=== PATIENT | male | born 1940 | race Caucasian/White ===

== ENCOUNTER → 2020-03-22 15:12 | Outpatient (BNVA) | payer MEDICARE, SELFPAY | PROVIDERS: Visit Provider Nurse Practitioner Family | DX: Z11.59 Encounter for screening for other viral diseases (principal) | CPT/HCPCS: 87635 ==

== ENCOUNTER 2020-06-09 14:01 | Outpatient (CLI) | payer MEDICARE, SELFPAY ==
--- NOTE | 2020-06-09 14:11 | CTR_ITS ---
PROCEDURE INFORMATION: Exam: CT Abdomen And Pelvis With Contrast Exam date and time: 06/09/2020 2:27 PM Age: 80 years old Clinical indication: Abdominal pain; Generalized; Additional info: Low back pain and near syncope, new onset. Self limiting TECHNIQUE: Imaging protocol: Computed tomography of the abdomen and pelvis with intravenous contrast. Radiation optimization: All CT scans at this facility use at least one of these dose optimization techniques: automated exposure control; mA and/or kV adjustment per patient size (includes targeted exams where dose is matched to clinical indication); or iterative reconstruction. Contrast material: VISI 320; Contrast volume: 95 ml; Contrast route: INTRAVENOUS (IV); COMPARISON: No relevant prior studies available. RADIATION DOSE METRICS: Total DLP (mGy-cm): 578.44 FINDINGS: Liver: Normal. No mass. Gallbladder and bile ducts: There has been a cholecystectomy. Pancreas: There is a mass in the pancreatic head measuring 5.6 x 5 cm. This solid mass enhances heterogeneously. No associated fat or calcification. No evidence for pancreatitis. Spleen: Normal. No splenomegaly. Adrenals: Normal. No mass. Kidneys and ureters: There is moderate left hydroureteronephrosis. No definite obstructing ureteral mass or calcification is identified. The left ureter is difficult to follow along its entire course. Stomach and bowel: There has been sigmoid colon surgery. There is stool throughout the colon. No bowel obstruction or wall thickening. Appendix: The appendix is visualized and appears normal. Intraperitoneal space: Unremarkable. No free air. No significant fluid collection. Vasculature: Unremarkable. No abdominal aortic aneurysm. Lymph nodes: Unremarkable. No enlarged lymph nodes. Bladder: Unremarkable as visualized. Reproductive: Unremarkable as visualized. Bones/joints: Unremarkable. No acute fracture. Soft tissues: Unremarkable. 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 There is moderate left hydroureteronephrosis. Radiation Dose CTDIVOL = (mGy): DLP = 578.44 (mGy-cm)
--- NOTE | 2020-06-09 14:11 | XRR_ITS ---
PROCEDURE INFORMATION: Exam: XR Chest, 2 Views Exam date and time: 06/09/2020 2:55 PM Age: 80 years old Clinical indication: Cough and shortness of breath; Additional info: Cough, short of breath, back pain, near syncope TECHNIQUE: Imaging protocol: XR of the chest Views: 2 views. COMPARISON: No relevant prior studies available. FINDINGS: Lungs: Unremarkable. No consolidation. Pleural space: Unremarkable. No pleural effusion. No pneumothorax. Heart/Mediastinum: Unremarkable. No cardiomegaly. Bones/joints: Degenerative change is identified in the spine. There is no evidence for acute fracture or malalignment. XR/XR chest 2V* [id number] IMPRESSION: There are no acute concerning abnormalities.
[2020-06-09 14:20] LABS: Basophils # 0.1 10^3/uL (0.0-0.1); Basophils % 0.4 %; Eosinophils % 0.1 %; Hemoglobin 15.1 g/dL (11.7-16.6); Lymphocytes # 1.6 10^3/uL (0.8-4.8); Lymphocytes % 11.8 %; Mean Corpuscular HGB Conc 31.5 g/dL (30.0-36.0); Mean Corpuscular Volume 95.4 fL (80-94); Mean Platelet Volume 9.4 fL (7.4-10.4); Monocytes # 0.4 10^3/uL (0.2-0.9); Neutrophils % 83.5 %; Nucleated Red Blood Cells % 0 %; Platelet Count 400 10^3/cmm (130-400); Red Blood Count 5.03 10^6/uL (4.1-5.3); Red Cell Distribution Width 13.7 % (12.1-15.1); White Blood Count 13.4 10^3/uL (4.0-10.0)
[2020-06-09 14:45] LABS: Anion Gap 12.5 (5-19); Blood Urea Nitrogen 19 mg/dL (8-23); Calcium 9.2 mg/dL (8.5-10.5); Carbon Dioxide 27 mmol/L (22-29); Chloride 104 mmol/L (98-107); Glucose 108 mg/dL (65-115); NT Pro B Type Natriuretic Pept 126 pg/mL (0-450); Osmolality Calculated 285 mOsm/kg (285-295); Potassium 4.5 mmol/L (3.5-5.1); Sodium 139 mmol/L (136-145); Thyroid Stimulating Hormone 1.26 uIU/mL (0.27-4.20)
[2020-06-09] MEDS: iodixanol 320 mg/mL 100mL Btl IV (15:54)
[2020-06-09] MEDS: iohexol 300 mg/mL 50 mL Btl PO (15:56)
== END 2020-06-09 14:02 | disposition home or self-care (01) ==
PROVIDERS: PCP Student in an Organized Health Care Education/Training Program; Visit Provider Emergency Medicine
DX: R06.02 Shortness of breath (principal); E03.9 Hypothyroidism, unspecified; R55 Syncope and collapse; R05 Cough; M54.5 Low back pain; K86.89 Other specified diseases of pancreas; N13.30 Unspecified hydronephrosis
CPT/HCPCS: 71046; 74177; 80048; 83880; 84443; 85025

== ENCOUNTER → 2022-02-20 10:22 | Outpatient (BNVA) | payer MEDICARE, SELFPAY | PROVIDERS: PCP Student in an Organized Health Care Education/Training Program; Visit Provider Internal Medicine Pulmonary Disease | DX: J44.1 Chronic obstructive pulmonary disease with (acute) exacerbation (principal); K86.89 Other specified diseases of pancreas; Z87.891 Personal history of nicotine dependence; N13.30 Unspecified hydronephrosis | CPT/HCPCS: 71046; 99204 ==

== ENCOUNTER → 2022-05-08 09:30 | Outpatient (BNVA) | payer MEDICARE, SELFPAY | PROVIDERS: PCP Nurse Practitioner Family; Visit Provider Internal Medicine Pulmonary Disease | DX: J44.1 Chronic obstructive pulmonary disease with (acute) exacerbation (principal); Z87.891 Personal history of nicotine dependence; K86.89 Other specified diseases of pancreas | CPT/HCPCS: 99214 ==

== ENCOUNTER → 2022-08-11 08:18 | Outpatient (BNVA) | payer MEDICARE, SELFPAY | PROVIDERS: PCP Nurse Practitioner Family; Visit Provider Internal Medicine Pulmonary Disease | DX: J44.9 Chronic obstructive pulmonary disease, unspecified (principal); Z87.891 Personal history of nicotine dependence; K86.89 Other specified diseases of pancreas; Z99.81 Dependence on supplemental oxygen | CPT/HCPCS: 99214 ==

== ENCOUNTER 2022-10-29 08:54 | Outpatient (CLI) | payer MEDICARE, SELFPAY | END 2022-10-29 08:55 | disposition home or self-care (01) | LOC: RT 08:58 | PROVIDERS: PCP Nurse Practitioner Family; Visit Provider Internal Medicine Pulmonary Disease | DX: J44.9 Chronic obstructive pulmonary disease, unspecified (principal) | CPT/HCPCS: 94060; 94618; 94729; J7613 ==

== ENCOUNTER → 2022-12-15 13:00 | Outpatient (BNVA) | payer MEDICARE, SELFPAY | PROVIDERS: PCP Nurse Practitioner Family; Visit Provider Internal Medicine Pulmonary Disease | DX: J44.9 Chronic obstructive pulmonary disease, unspecified (principal); Z87.891 Personal history of nicotine dependence; K86.89 Other specified diseases of pancreas; Z99.81 Dependence on supplemental oxygen; G47.33 Obstructive sleep apnea (adult) (pediatric) | CPT/HCPCS: 99214 ==

== ENCOUNTER 2023-04-01 11:35 | Emergency (ER) | payer MEDICARE, SELFPAY ==
[2023-04-01 11:52] VITALS: BP 126/83; PULSE 80; RESP 17; TEMP 36.6; O2SAT 96; BMI 23.5
--- NOTE | 2023-04-01 12:03 | XRR_ITS ---
PROCEDURE INFORMATION: Exam: XR Chest Exam date and time: 04/01/2023 12:09 PM Age: 83 years old Clinical indication: Patient HX: Weakness, cough, HX of growth on pancreas since 2000; Additional info: Weakness and cough TECHNIQUE: Imaging protocol: Radiologic exam of the chest. Views: 1 view. COMPARISON: CR XR chest 2V* [id number] 02/20/2022 12:37 PM FINDINGS: Lungs: Unremarkable. No consolidation. Pleural spaces: Unremarkable. No pleural effusion. No pneumothorax. Heart/Mediastinum: Unremarkable. No cardiomegaly. Bones/joints: There is kyphoplasty present at the T12 level stable since prior Other findings: There has been no interval change comparing to prior examination XR/XR chest 1V portable [id number] IMPRESSION: 1. No acute findings. 2. Stable kyphoplasty T12 level
--- NOTE | 2023-04-01 12:04 | ECG_ITS ---
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 Measurements Intervals [place] Rate: 77 P: 82 OR: 203 QRS: 58 QRSD: 88 T: 80 QT: 352 QTc: 401 Interpretive Statements SINUS RHYTHM POSSIBLE RIGHT VENTRICULAR CONDUCTION DELAY [RSR (QR) IN V1/V2] SEPTAL MYOCARDIAL INFARCTION , OF INDETERMINATE AGE [40+ ms Q WAVE IN V1/V2] No previous ECG available for comparison Electronically Signed On 04-01-2023 21:01:34 CDT by Randy Brito M.D. [id number]
--- NOTE | 2023-04-01 12:23 | ED_ITS ---
Documented by User: RODRIGO Quiroz 04/02/23 14:21 HPI - Weakness General: Chief complaint: Weakness Stated complaint: Weakness, Low BP Time Seen by Provider: 04/01/23 12:03 History of Present Illness: Patient is a 83-year-old male who comes to the ED with weakness. Patient says that his symptoms started approximately a week ago. Patient has a history of COPD and is on 2 L of oxygen at home. Patient is having symptoms of dry cough, nasal drainage and congestion, body aches and shortness of breath. Shortness of breath worsens with exertion. Denies any shortness of breath when laying flat. Patient says he has occasionally turned his oxygen up to 3 L, but he is mostly been on 2 L and is O2 saturation has been in the low 90s. Denies any fevers, chills, chest pain, nausea/vomiting, bladder or bowel symptoms. Associated symptoms: Denies chest pain, chills, dysuria, fever(s), headache(s), nausea or vomiting Review of Systems Const: Reports: body aches and fatigue; Denies: fever(s) or chills Eyes: Denies: change in vision or eye discomfort ENMT: Reports: nasal discharge and nasal congestion; Denies: throat pain or odynophagia Card: Denies: chest pain, palpitations, edema, swelling of feet/ankles, dyspnea on exertion or orthopnea Resp: Reports: dyspnea and non-productive cough; Denies: productive cough GI: Denies: abdominal pain, nausea, vomiting, diarrhea, constipation or hematochezia : Denies: flank pain, difficulty urinating, dysuria or hematuria Musc: Denies: neck pain, back pain or extremity swelling Skin/Breast: Denies: rash or new lesions Neuro: Denies: headache(s), numbness in extremities or weakness in extremities PFSH ED PFSH: Medical History (Updated 04/01/23 @ 16:08 by RODRIGO Quiroz) COPD exacerbation Hydroureteronephrosis No pertinent family history Pancreatic mass Social History Smoking and tobacco status: former smoker Quit status (tobacco): has quit using tobacco Year quit tobacco: 1988 Alcohol intake: never Substance/Drug Use: never Physical Exam Const: COMMON NORMALS: patient oriented x3 and alert GENERAL APPEARANCE: cooperative HENMT: COMMON NORMALS: normocephalic HEAD & SCALP: normocephalic MOUTH: Normal oral and palatal mucosa present THROAT: posterior oropharynx normal and uvula midline Neck/C-Spine: COMMON NORMALS: supple GENERAL: Yes normal visual inspection Resp: COMMON NORMALS: normal respiratory effort, No retractions and No use of accessory muscles AUSCULTATION: diminished lung sounds bilateral in the lower lung drake Cardio: COMMON NORMALS: regular rate, regular rhythm, S1 normal heart sound present, S2 normal heart sound present, No gallops present (Cardio), No clicks p resent (Cardio), No murmurs present (Cardio) and Peripheral pulses 2+ throughout RATE: regular rate RHYTHM: regular rhythm HEART SOUNDS: S1 normal heart sound present and S2 normal heart sound present PERIPHERAL PULSES: Peripheral pulses 2+ throughout GI: COMMON NORMALS: Normal to inspection, nondistended, normoactive bowel sounds present, Soft to palpation, non-tender and no masses PALPATION: Yes Soft to palpation : COMMON NORMALS: Yes no CVA tenderness BLADDER/KIDNEY EXAM: Yes no CVA tenderness Back/Pelvis: COMMON NORMALS: no CVA tenderness Extremity: COMMON NORMALS: normal to inspection Neuro: COMMON NORMALS: patient oriented x3 SENSORIUM/ORIENTATION: Yes alert GAIT: Yes Normal gait present Skin: GENERAL SKIN EXAM: dry skin Course Vital Signs: Vital signs: Vital Signs Temperature 97.9 F 04/01/23 11:52 Pulse Rate 86 04/01/23 16:30 Respiratory Rate 18 04/01/23 16:30 Blood Pressure 126/83 04/01/23 11:52 Pulse Oximetry 97 04/01/23 16:30 Oxygen Delivery Me thod Nasal Cannula 04/01/23 11:52 Oxygen Flow Rate 3 04/01/23 11:52 MDM - Weakness Medical Decision Making Patient is a 83-year-old male who comes to the ED with weakness. Patient says that his symptoms started approximately a week ago. Patient has a history of COPD and is on 2 L of oxygen at home. Patient is having symptoms of dry cough, nasal drainage and congestion, body aches and shortness of breath. Shortness of breath worsens with exertion. Denies any shortness of breath when laying flat. Patient says he has occasionally turned his oxygen up to 3 L, but he is mostly been on 2 L and is O2 saturation has been in the low 90s. Denies any fevers, chills, chest pain, nausea/vomiting, bladder or bowel symptoms. Vitals are stable. He is on 2 L of O2 here in the ED and his O2 saturation is sitting in the mid 90s. He appears nontoxic in no acute distress or pain. He has some diminished lung sounds at the bases bilaterally but rest of exam is benign white blood cell count of 12 and the rest of CBC and CMP is unremarkable. Chest x-ray shows no acute findings. Troponins negative and COVID and influenza were both negative. EKG shows no acute findings. Patient was given dose of IV Solu- Medrol here in the ED. He was diagnosed with COPD exacerbation and was di scharged home with a prescription for an antibiotic and steroid. Told to follow-up with their PCP in the next 5 to 7 days for reevaluation. Strict return to ED precautions given. Patient understood agree with plan. Lab Data I reviewed the patient's lab results. 04/01/23 12:15 04/01/23 12:15 Radiology Impressions Chest X-Ray 04/01/23 12:03 IMPRESSION: 1. No acute findings. 2. Stable kyphoplasty T12 level Laboratory Results WBC 12.0 10^3/uL (4.0-10.0) H 04/01/23 12:15 RBC 4.63 10^6/uL (4.1-5.3) 04/01/23 12:15 Hgb 13.6 g/dL (11.7-16.6) 04/01/23 12:15 Hct 42.4 % (42.0-52.0) 04/01/23 12:15 MCV 91.6 fl (80-94) 04/01/23 12:15 MCH 29.4 pg (28.0-34.0) 04/01/23 12:15 MCHC 32.1 g/dL (30.0-36.0) 04/01/23 12:15 RDW 13.7 % (12.1-15.1) 04/01/23 12:15 Plt Count 423 10^3/cmm (130-400) H 04/01/23 12:15 MPV 9.4 fL (7.4-10.4) 04/01/23 12:15 Neut % (Auto) 67.3 % 04/01/23 12:15 Lymph % (Auto) 18.2 % 04/01/23 12:15 [place] % (Auto) 10.6 % 04/01/23 12:15 Eos % (Auto) 2.7 % 04/01/23 12:15 Baso % (Auto) 0.9 % 04/01/23 12:15 Neut # (Auto) 8.07 10^3/uL (1.8-7.7) H 04/01/23 12:15 Lymph # (Auto) 2.2 10^3/uL (0.8-4.8) 04/01/23 12:15 [place] # (Auto) 1.3 10^3/uL (0.2-0.9) H 04/01/23 12:15 Eos # (Auto) 0.3 10^3/uL (0.0-0.8) 04/01/23 12:15 Baso # (Auto) 0.1 10^3/uL (0.0-0.1) 04/01/23 12:15 Nucleated RBC % (auto) 0 % 04/01/23 12:15 Nucleated RBCs # 0.0 /100WBC 04/01/23 12:15 Sodium 139 mmol/L (136-145) 04/01/23 12:15 Potassium 4.4 mmol/L (3.5-5.1) 04/01/23 12:15 Chloride 105 mmol/L (98-107) 04/01/23 12:15 Carbon Dioxide 23 mmol/L (22-29) 04/01/23 12:15 Anion Gap 15.4 (5-19) 04/01/23 12:15 BUN 19 mg/dL (8-23) 04/01/23 12:15 Creatinine 1.3 mg/dL (0.7-1.2) H 04/01/23 12:15 GFR Calculation Not Reportable 04/01/23 12:15 Glucose 121 mg/dL (65-115) H 04/01/23 12:15 Calculated Osmolality 292 mOsm/kg (285-295) 04/01/23 12:15 Calcium 9.2 mg/dL (8.5-10.5) 04/01/23 12:15 Total Bilirubin 0.3 mg/dL (0.15-1.2) 04/01/23 12:15 AST 13 U/L (0-40) 04/01/23 12:15 ALT 16 U/L (0-41) 04/01/23 12:15 Alkaline Phosphatase 115 U/L (40-130) 04/01/23 12:15 Troponin T Baseline 6 ng/L (0-15) 04/01/23 12:15 Troponin T 120 Minute 10.35 ng/L (0-15) 04/01/23 14:12 Delta Troponin T 4.35 ABS# (0-10) 04/01/23 14:12 NT-Pro-B Natriuret Pep 36 pg/mL (0-450) 04/01/23 12:15 Total Protein 6.9 g/dL (6.6-8.7) 04/01/23 12:15 Albumin 4.0 g/dL (3.5-5.2) 04/01/23 12:15 Globulin 2.9 g/dL (1.3-4.6) 04/01/23 12:15 Influenza Type A Ag negative (Negative) 04/01/23 12:19 Influenza Type B Ag negative (Negative) 04/01/23 12:19 SARS-CoV-2 Ag (Rapid) negative (Negative) 04/01/23 12:19 EKG Data EKG 1: EKG interpretation date: 04/01/23 Interpretation: Normal sinus rhythm, no ST segment elevation or depression seen. 66 bpm. Discharge Plan Discharge Patient Disposition: Home Clinical Impression: COPD exacerbation Condition: Stable Prescriptions: New doxycycline hyclate 100 mg capsule 100 mg PO BID 10 Days Qty: 20 0RF methylprednisolone 4 mg tablets,dose pack See Rx Instructions .ROUTE .COMPLEX Qty: 21 0RF Rx Instructions: orally per package directions No Action levothyroxine 100 mcg capsule 100 mcg PO DAILY finasteride 5 mg tablet 5 mg PO DAILY albuterol sulfate [Ventolin HFA] 90 mcg/actuation HFA aerosol inhaler 2 puff INHALATION Q6H PRN (Reason: Shortness Of Breath) sertraline 50 mg tablet 50 mg PO DAILY montelukast 10 mg tablet 10 mg PO DAILY hydroxyzine HCl 25 mg tablet 25 mg PO BID PRN (Reason: Anxiety) atorvastatin 40 mg tablet 40 mg PO DAILY tamsulosin 0.4 mg capsule 0.4 mg PO DAILY Anoro Ellipta 62.5-25 mcg/actuation blister with device 1 inh inhalation DAILY Qty: 60 3RF pantoprazole 40 mg tablet,delayed release (DR/EC) 40 mg PO DAILY Flovent HFA 110 mcg/actuation HFA aerosol inhaler 1 puff INHALATION BID Discharge Orders: Discharge ED (Routine); Ordered 04/01/23 Ordered By: Luis Fernando Rosas Referrals: Angela Meléndez FNP [Primary Care Provider] - Discharge Diet: Regular Discharge Activity: Increase activity as tolerated Patient Instructions: COPD (Chronic Obstructive Pulmonary Disease) (DC) Activity Restrictions/Additional Instructions: Follow-up with medical provider as directed in the next 5 to 7 days for reevaluation. Take medications as prescribed. Return to the ER or your medical provider if condition worsens. please read and understand discharge instructions. Thank you for choosing [facility] for your healthcare needs today. Please realize this is an emergency room and that we are providing you with a medical screening exam and this may not be complete and all inclusive of all the testing and or work up that you may need to determine your ailment or severity of your illness. It is very important that you follow up as instructed or that you return to the Emergency Department should you have concerns or if your condition changes or worsens in any way. Coding Level of Care Code ED Paratransit Operator for Chg Fwd Documented by User: Shahid Schwartz MD 04/03/23 22:04 HPI - Weakness General: Chief complaint: Weakness Stated complaint: Weakness, Low BP Time Seen by Provider: 04/01/23 12:03 [facility] ED PFSH: Medical History (Updated 04/01/23 @ 16:08 by RODRIGO Quiroz) COPD exacerbation Hydroureteronephrosis No pertinent family history Pancreatic mass Social History Smoking and tobacco status: former smoker Quit status (tobacco): has quit using tobacco Year quit tobacco: 1988 Alcohol intake: never Substance/Drug Use: never Course Vital Signs: Vital signs: Vital Signs Temperature 97.9 F 04/01/23 11:52 Pulse Rate 86 04/01/23 16:30 Respiratory Rate 18 04/01/23 16:30 Blood Pressure 126/83 04/01/23 11:52 Pulse Oximetry 97 04/01/23 16:30 Oxygen Delivery Me thod Nasal Cannula 04/01/23 11:52 Oxygen Flow Rate 3 04/01/23 11:52 MDM - Weakness Medical Decision Making Patient is a 83-year-old male who comes to the ED with weakness. Patient says that his symptoms started approximately a week ago. Patient has a history of COPD and is on 2 L of oxygen at home. Patient is having symptoms of dry cough, nasal drainage and congestion, body aches and shortness of breath. Shortness of breath worsens with exertion. Denies any shortness of breath when laying flat. Patient says he has occasionally turned his oxygen up to 3 L, but he is mostly been on 2 L and is O2 saturation has been in the low 90s. Denies any fevers, chills, chest pain, nausea/vomiting, bladder or bowel symptoms. Vitals are stable. He is on 2 L of O2 here in the ED and his O2 saturation is sitting in the mid 90s. He appears nontoxic in no acute distress or pain. He has some diminished lung sounds at the bases bilaterally but rest of exam is benign white blood cell count of 12 and the rest of CBC and CMP is unremarkable. Chest x-ray shows no acute findings. Troponins negative and COVID and influenza were both negative. EKG shows no acute findings. Patient was given dose of IV Solu- Medrol here in the ED. He was diagnosed with COPD exacerbation and was discharged home with a prescription for an antibiotic and steroid. Told to follow-up with their PCP in the next 5 to 7 days for reevaluation. Strict return to ED precautions given. Patient understood agree with plan. I discussed this case with RODRIGO Quiroz. I reviewed documentation, labs, imaging. Shahid Schwartz MD Emergency Medicine Lab Data 04/01/23 12:15 04/01/23 12:15 Radiology Impressions Chest X-Ray 04/01/23 12:03 IMPRESSION: 1. No acute findings. 2. Stable kyphoplasty T12 level Laboratory Results WBC 12.0 10^3/uL (4.0-10.0) H 04/01/23 12:15 RBC 4.63 10^6/uL (4.1-5.3) 04/01/23 12:15 Hgb 13.6 g/dL (11.7-16.6) 04/01/23 12:15 Hct 42.4 % (42.0-52.0) 04/01/23 12:15 MCV 91.6 fl (80-94) 04/01/23 12:15 MCH 29.4 pg (28.0-34.0) 04/01/23 12:15 MCHC 32.1 g/dL (30.0-36.0) 04/01/23 12:15 RDW 13.7 % (12.1-15.1) 04/01/23 12:15 Plt Count 423 10^3/cmm (130-400) H 04/01/23 12:15 MPV 9.4 fL (7.4-10.4) 04/01/23 12:15 Neut % (Auto) 67.3 % 04/01/23 12:15 Lymph % (Auto) 18.2 % 04/01/23 12:15 [place] % (Auto) 10.6 % 04/01/23 12:15 Eos % (Auto) 2.7 % 04/01/23 12:15 Baso % (Auto) 0.9 % 04/01/23 12:15 Neut # (Auto) 8.07 10^3/uL (1.8-7.7) H 04/01/23 12:15 Lymph # (Auto) 2.2 10^3/uL (0.8-4.8) 04/01/23 12:15 [place] # (Auto) 1.3 10^3/uL (0.2-0.9) H 04/01/23 12:15 Eos # (Auto) 0.3 10^3/uL (0.0-0.8) 04/01/23 12:15 Baso # (Auto) 0.1 10^3/uL (0.0-0.1) 04/01/23 12:15 Nucleated RBC % (auto) 0 % 04/01/23 12:15 Nucleated RBCs # 0.0 /100WBC 04/01/23 12:15 Sodium 139 mmol/L (136-145) 04/01/23 12:15 Potassium 4.4 mmol/L (3.5-5.1) 04/01/23 12:15 Chloride 105 mmol/L (98-107) 04/01/23 12:15 Carbon Dioxide 23 mmol/L (22-29) 04/01/23 12:15 Anion Gap 15.4 (5-19) 04/01/23 12:15 BUN 19 mg/dL (8-23) 04/01/23 12:15 Creatinine 1.3 mg/dL (0.7-1.2) H 04/01/23 12:15 GFR Calculation Not Reportable 04/01/23 12:15 Glucose 121 mg/dL (65-115) H 04/01/23 12:15 Calculated Osmolality 292 mOsm/kg (285-295) 04/01/23 12:15 Calcium 9.2 mg/dL (8.5-10.5) 04/01/23 12:15 Total Bilirubin 0.3 mg/dL (0.15-1.2) 04/01/23 12:15 AST 13 U/L (0-40) 04/01/23 12:15 ALT 16 U/L (0-41) 04/01/23 12:15 Alkaline Phosphatase 115 U/L (40-130) 04/01/23 12:15 Troponin T Baseline 6 ng/L (0-15) 04/01/23 12:15 Troponin T 120 Minute 10.35 ng/L (0-15) 04/01/23 14:12 Delta Troponin T 4.35 ABS# (0-10) 04/01/23 14:12 NT-Pro-B Natriuret Pep 36 pg/mL (0-450) 04/01/23 12:15 Total Protein 6.9 g/dL (6.6-8.7) 04/01/23 12:15 Albumin 4.0 g/dL (3.5-5.2) 04/01/23 12:15 Globulin 2.9 g/dL (1.3-4.6) 04/01/23 12:15 Influenza Type A Ag negative (Negative) 04/01/23 12:19 Influenza Type B Ag negative (Negative) 04/01/23 12:19 SARS-CoV-2 Ag (Rapid) negative (Negative) 04/01/23 12:19 Discharge Plan Discharge Patient Disposition: Home Clinical Impression: COPD exacerbation Condition: Stable Prescriptions: New doxycycline hyclate 100 mg capsule 100 mg PO BID 10 Days Qty: 20 0RF methylprednisolone 4 mg tablets,dose pack See Rx Instructions .ROUTE .COMPLEX Qty: 21 0RF Rx Instructions: orally per package directions No Action levothyroxine 100 mcg capsule 100 mcg PO DAILY finasteride 5 mg tablet 5 mg PO DAILY albuterol sulfate [Ventolin HFA] 90 mcg/actuation HFA aerosol inhaler 2 puff INHALATION Q6H PRN (Reason: Shortness Of Breath) sertraline 50 mg tablet 50 mg PO DAILY montelukast 10 mg tablet 10 mg PO DAILY hydroxyzine HCl 25 mg tablet 25 mg PO BID PRN (Reason: Anxiety) atorvastatin 40 mg tablet 40 mg PO DAILY tamsulosin 0.4 mg capsule 0.4 mg PO DAILY Anoro Ellipta 62.5-25 mcg/actuation blister with device 1 inh inhalation DAILY Qty: 60 3RF pantoprazole 40 mg tablet,delayed release (DR/EC) 40 mg PO DAILY Flovent HFA 110 mcg/actuation HFA aerosol inhaler 1 puff INHALATION BID Discharge Orders: Discharge ED (Routine); Ordered 04/01/23 Ordered By: Luis Fernando Rosas Referrals: Angela Meléndez FNP [Primary Care Provider] - Discharge Diet: Regular Discharge Activity: Increase activity as tolerated Patient Instructions: COPD (Chronic Obstructive Pulmonary Disease) (DC) Activity Restrictions/Additional Instructions: Follow-up with medical provider as directed in the next 5 to 7 days for reevaluation. Take medications as prescribed. Return to the ER or your medical provider if condition worsens. please read and understand discharge instructions. Thank you for choosing [facility] for your healthcare needs today. Please realize this is an emergency room and that we are providing you with a medical screening exam and this may not be complete and all inclusive of all the testing and or work up that you may need to determine your ailment or severity of your illness. It is very important that you follow up as instructed or that you return to the Emergency Department should you have concerns or if your condition changes or worsens in any way. Coding Level of Care Code ED Paratransit Operator for Yisel Helton
[2023-04-01 12:26] LABS: Basophils # 0.1 10^3/uL (0.0-0.1); Basophils % 0.9 %; Eosinophils # 0.3 10^3/uL (0.0-0.8); Eosinophils % 2.7 %; Hematocrit 42.4 % (42.0-52.0); Hemoglobin 13.6 g/dL (11.7-16.6); Lymphocytes # 2.2 10^3/uL (0.8-4.8); Lymphocytes % 18.2 %; Mean Corpuscular HGB Conc 32.1 g/dL (30.0-36.0); Mean Corpuscular Hemoglobin 29.4 pg (28.0-34.0); Mean Corpuscular Volume 91.6 fl (80-94); Mean Platelet Volume 9.4 fL (7.4-10.4); Monocytes # 1.3 10^3/uL (0.2-0.9); Monocytes % 10.6 %; Neutrophils # 8.07 10^3/uL (1.8-7.7); Neutrophils % 67.3 %; Nucleated Red Blood Cells % 0 %; Platelet Count 423 10^3/cmm (130-400); Red Blood Count 4.63 10^6/uL (4.1-5.3); Red Cell Distribution Width 13.7 % (12.1-15.1)
[2023-04-01 12:44] LABS: Troponin(5th) Baseline 6 ng/L (0-15)
[2023-04-01 12:51] LABS: Alanine Aminotransferase 16 U/L (0-41); Alkaline Phosphatase 115 U/L (40-130); Anion Gap 15.4 (5-19); Aspartate Amino Transferase 13 U/L (0-40); Blood Urea Nitrogen 19 mg/dL (8-23); Calcium 9.2 mg/dL (8.5-10.5); Carbon Dioxide 23 mmol/L (22-29); Chloride 105 mmol/L (98-107); Globulin 2.9 g/dL (1.3-4.6); Glucose 121 mg/dL (65-115); NT Pro B Type Natriuretic Pept 36 pg/mL (0-450); Osmolality Calculated 292 mOsm/kg (285-295); Potassium 4.4 mmol/L (3.5-5.1); Sodium 139 mmol/L (136-145); Total Bilirubin 0.3 mg/dL (0.15-1.2); Total Protein 6.9 g/dL (6.6-8.7)
[2023-04-01 12:55] LABS: SARS Covid-2 Antigen negative (Negative)
[2023-04-01 12:56] LABS: Influenza A by IFA negative (Negative); Influenza B by IFA negative (Negative)
--- NOTE | 2023-04-01 14:04 | ECG_ITS ---
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 Measurements Intervals [place] Rate: 66 P: 68 CO: 209 QRS: 59 QRSD: 89 T: 76 QT: 376 QTc: 394 Interpretive Statements SINUS RHYTHM SEPTAL MYOCARDIAL INFARCTION , OF INDETERMINATE AGE [40+ ms Q WAVE IN V1/V2] Compared to ECG 04/01/2023 12:14:38 No significant changes Electronically Signed On 04-02-2023 14:09:49 CDT by Fercho Plasencia M.D. [email or web address]
[2023-04-01] MEDS: dexamethasone 10 mg/mL INJ IVP (14:12)
[2023-04-01 15:00] VITALS: PULSE 79; RESP 18; O2SAT 94
[2023-04-01 15:42] LABS: Troponin 5 2HR 10.35 ng/L (0-15)
[2023-04-01 16:01] LABS: Troponin 5 2HR Delta 4.35 ABS# (0-10)
[2023-04-01 16:30] VITALS: PULSE 86; RESP 18; O2SAT 97
== END 2023-04-01 16:32 | disposition home or self-care (01) ==
PROVIDERS: Emergency Provider Physician Assistant; PCP Nurse Practitioner Family
DX: J44.1 Chronic obstructive pulmonary disease with (acute) exacerbation (principal); Z20.822 Contact with and (suspected) exposure to COVID-19; Z87.891 Personal history of nicotine dependence
CPT/HCPCS: 71045; 80053; 83880; 84484; 85025; 87426; 87804; 93005; 96374; 99285; J1100

== ENCOUNTER 2023-04-07 11:33 | Emergency (ER) | payer MEDICARE, SELFPAY ==
[2023-04-07] VITALS (31 sets, daily range): BP systolic 122–158; BP diastolic 72–93; PULSE 67–88; RESP 10–25; TEMP 36.8; O2SAT 91–97
--- NOTE | 2023-04-07 12:01 | XRR_ITS ---
PROCEDURE INFORMATION: Exam: XR Chest Exam date and time: 04/07/2023 12:15 PM Age: 83 years old Clinical indication: Cough and dyspnea; Additional info: Dyspnea/cough TECHNIQUE: Imaging protocol: Radiologic exam of the chest. Views: 1 view. COMPARISON: CR XR chest 1V portable [id number] 04/01/2023 12:09 PM FINDINGS: Lungs: Lungs are clear. Pleural spaces: There is no pleural effusion or pneumothorax. Heart/Mediastinum: Cardiomediastinal contours are unremarkable. Bones/joints: Bones are unremarkable. XR/XR chest 1V portable [id number] IMPRESSION: No acute findings.
--- NOTE | 2023-04-07 12:09 | W.ED.WEAKNES ---
HPI - Weakness General: Chief complaint: Weakness Stated complaint: dizzy, weakness Time Seen by Provider: 04/07/23 11:55 Source: patient Mode of arrival: ambulatory History of Present Illness: 83-year-old male presents emergency room complaining of a near syncopal episode. He had gone to the pharmacy to get some medications and driven back home and when he went to get out of his vehicle he felt lightheaded and dizzy suddenly felt like he was going to pass out still feels very slightly dizzy most of his symptoms has resolved he never actually lost consciousness she denies chest or abdominal pain no vomiting or diarrhea but he did get nauseous. No chest discomfort or palpitations at this time. He currently is on doxycycline and prednisone he has been for the last several days for COPD exacerbation. MD Complaint: generalized weakness Onset (ago): minute(s) Location: generalized Severity: mild Relieving factors: none Exacerbating factors: none Associated symptoms: Denies chest pain, chills, confusion, melena, decreased appetite, diaphoresis, dysuria, easy bruising, fever(s), headache(s), myalgias, nausea, rash, short of breath, syncope or vomiting Review of Systems Const: Denies: fever(s), chills or diaphoresis ENMT: Denies: throat pain, ear or mastoid pain, nasal discharge or nasal congestion Card: Denies: chest pain, palpitations, irregular heart rhythm, edema or syncope Resp: Denies: dyspnea, productive cough or non-productive cough GI: Denies: abdominal pain, nausea, vomiting or melena : Denies: dysuria, urinary frequency or urinary urgency Skin/Breast: Denies: rash or pruritus Neuro: Denies: headache(s) or confusion Haim/Lymph: Denies: easy bruising PFS ED PFSH: Medical History COPD exacerbation Hydroureteronephrosis No pertinent family history Pancreatic mass Social History Smoking and tobacco status: former smoker Quit status (tobacco): has quit using tobacco Year quit tobacco: 1988 Alcohol intake: never Substance/Drug Use: never Physical Exam Const: GENERAL APPEARANCE: cooperative and comfortable ORIENTATION/CONSCIOUSNESS: Yes awake, Yes oriented to person, Yes oriented to place and Yes oriented to time HENMT: COMMON NORMALS: normocephalic, atraumatic and hearing grossly normal bilaterally HEAD & SCALP: normocephalic and atraumatic Resp: COMMON NORMALS: normal respiratory effort, No retractions, No use of accessory muscles and clear to auscultation bilaterally AUSCULTATION: clear to auscultation bilaterally Cardio: COMMON NORMALS: regular rate, regular rhythm and No murmurs present (Cardio) RATE: regular rate RHYTHM: regular rhythm GI: COMMON NORMALS: Soft to palpation and No hepatosplenomegaly present AUSCULTATION: Yes normoactive bowel sounds PALPATION: Yes Soft to palpation, No Tenderness to palpation present (GI), No Guarding due to palpation present (GI) and Yes No hepatosplenomegaly present Extremity: COMMON NORMALS: normal to inspection, capillary refill normal, no clubbing, cyanosis or edema, no calf tenderness and no pedal edema Neuro: SENSORIUM/ORIENTATION: Yes oriented to person, Yes oriented to place and Yes oriented to time Skin: COMMON NORMALS: no rashes or lesions noted GENERAL SKIN EXAM: no rashes or lesions noted Course Vital Signs: Vital signs: Vital Signs Temperature 98.2 F 04/07/23 11:53 Pulse Rate 83 04/07/23 15:05 Respiratory Rate 13 04/07/23 15:05 Blood Pressure 128/81 04/07/23 15:05 Pulse Oximetry 93 04/07/23 15:05 Oxygen Delivery Me thod Room Air 04/07/23 12:18 MDM - Weakness Medical Decision Making Patient is feeling much better. Leukocytosis secondary to prednisone. Patient up and amatory without difficulty follow-up with primary care. Medical Records I reviewed the patient's medical records. Lab Data I reviewed the patient's lab results. 04/07/23 12:24 04/07/23 12:24 Radiology Impressions Chest X-Ray 04/07/23 12:01 IMPRESSION: No acute findings. Laboratory Results WBC 21.9 10^3/uL (4.0-10.0) H 04/07/23 12:24 RBC 5.07 10^6/uL (4.1-5.3) 04/07/23 12:24 Hgb 14.9 g/dL (11.7-16.6) 04/07/23 12:24 Hct 47.2 % (42.0-52.0) 04/07/23 12:24 MCV 93.1 fl (80-94) 04/07/23 12:24 MCH 29.4 pg (28.0-34.0) 04/07/23 12:24 MCHC 31.6 g/dL (30.0-36.0) 04/07/23 12:24 RDW 14.3 % (12.1-15.1) 04/07/23 12:24 Plt Count 483 10^3/cmm (130-400) H 04/07/23 12:24 MPV 9.0 fL (7.4-10.4) 04/07/23 12:24 Neut % (Auto) 75.8 % 04/07/23 12:24 Lymph % (Auto) 12.0 % 04/07/23 12:24 [place] % (Auto) 7.3 % 04/07/23 12:24 Eos % (Auto) 0.9 % 04/07/23 12:24 Baso % (Auto) 0.7 % 04/07/23 12:24 Neut # (Auto) 16.61 10^3/uL (1.8-7.7) H 04/07/23 12:24 Lymph # (Auto) 2.6 10^3/uL (0.8-4.8) 04/07/23 12:24 [place] # (Auto) 1.6 10^3/uL (0.2-0.9) H 04/07/23 12:24 Eos # (Auto) 0.2 10^3/uL (0.0-0.8) 04/07/23 12:24 Baso # (Auto) 0.2 10^3/uL (0.0-0.1) H 04/07/23 12:24 Nucleated RBC % (auto) 0 % 04/07/23 12:24 Nucleated RBCs # 0.0 /100WBC 04/07/23 12:24 Sodium 136 mmol/L (136-145) 04/07/23 12:24 Potassium 4.3 mmol/L (3.5-5.1) 04/07/23 12:24 Chloride 101 mmol/L (98-107) 04/07/23 12:24 Carbon Dioxide 21 mmol/L (22-29) L 04/07/23 12:24 Anion Gap 18.3 (5-19) 04/07/23 12:24 BUN 33 mg/dL (8-23) H 04/07/23 12:24 Creatinine 1.5 mg/dL (0.7-1.2) H 04/07/23 12:24 GFR Calculation Not Reportable 04/07/23 12:24 Glucose 70 mg/dL (65-115) 04/07/23 12:24 Calculated Osmolality 288 mOsm/kg (285-295) 04/07/23 12:24 Calcium 9.0 mg/dL (8.5-10.5) 04/07/23 12:24 Total Bilirubin 0.3 mg/dL (0.15-1.2) 04/07/23 12:24 AST 11 U/L (0-40) 04/07/23 12:24 ALT 20 U/L (0-41) 04/07/23 12:24 Alkaline Phosphatase 89 U/L (40-130) 04/07/23 12:24 Troponin T Baseline 8 ng/L (0-15) 04/07/23 12:24 Troponin T 120 Minute 8.25 ng/L (0-15) 04/07/23 14:22 Delta Troponin T 0.25 ABS# (0-10) 04/07/23 14:22 Total Protein 6.7 g/dL (6.6-8.7) 04/07/23 12:24 Albumin 4.0 g/dL (3.5-5.2) 04/07/23 12:24 Globulin 2.7 g/dL (1.3-4.6) 04/07/23 12:24 Urine Color Yellow (Yellow) 04/07/23 12:50 Urine Appearance Clear (CLEAR) 04/07/23 12:50 Urine pH 5 (5-7) 04/07/23 12:50 Ur Specific [place] 1.015 (1.005-1.030) 04/07/23 12:50 Urine Protein Neg (Negative) 04/07/23 12:50 Urine Glucose (UA) Norm (Normal) 04/07/23 12:50 Urine Ketones Negative (Negative) 04/07/23 12:50 Urine Blood Neg (Negative) 04/07/23 12:50 Urine Nitrate Negative (Negative) 04/07/23 12:50 Urine Bilirubin Neg (Negative) 04/07/23 12:50 Urine Urobilinogen Neg mg/dL (Negative) 04/07/23 12:50 Ur Leukocyte Esterase Negative (Negative) 04/07/23 12:50 Discharge Plan Discharge Patient Disposition: Home Clinical Impression: Orthostatic hypotension, Leukocytosis Condition: Stable Prescriptions: No Action finasteride 5 mg tablet 5 mg PO QAM albuterol sulfate [Ventolin HFA] 90 mcg/actuation HFA aerosol inhaler 2 puff INHALATION Q6H PRN (Reason: Shortness Of Breath) sertraline 50 mg tablet 50 mg PO QAM montelukast 10 mg tablet 10 mg PO BEDTIME atorvastatin 40 mg tablet 40 mg PO BEDTIME tamsulosin 0.4 mg capsule 0.4 mg PO QAM hydroxyzine HCl 50 mg tablet 50 mg PO BEDTIME levothyroxine 125 mcg tablet 125 mcg PO QAM Excedrin Migraine 250-250-65 mg Tablet 2 tab PO Q6H PRN (Reason: Pain) Anoro Ellipta 62.5-25 mcg/actuation blister with device 1 inh inhalation QAM pantoprazole 40 mg tablet,delayed release (DR/EC) 40 mg PO QAM fluticasone propionate [Flovent HFA] 110 mcg/actuation HFA aerosol inhaler 1 puff INHALATION BID doxycycline hyclate 100 mg capsule 100 mg PO BID 10 Days Qty: 20 0RF Rx Instructions: for 10 days (rx filled 04/01/23) methylprednisolone 4 mg tablets,dose pack See Rx Instructions .ROUTE .COMPLEX Qty: 21 0RF Rx Instructions: orally per package directions Discharge Orders: Discharge ED (Routine); Ordered 04/07/23 Ordered By: Francisco King Referrals: Angela Meléndez FNP [Primary Care Provider] - Discharge Diet: Usual diet Discharge Activity: Increase activity as tolerated Patient Instructions: Opioid Safety, Pain Management Activity Restrictions/Additional Instructions: You are seen today for an episode of orthostasis. Your blood pressure dropped with postural changes increase your fluid intake. Your white count was elevated this is likely due to the recent steroid you have been on. Follow-up with your doctor at the end of this week return to the emergency room if further problems. Coding Level of Care Code ED Hardware Installer for Yisel Helton
[2023-04-07 12:33] LABS: Basophils # 0.2 10^3/uL (0.0-0.1); Basophils % 0.7 %; Eosinophils # 0.2 10^3/uL (0.0-0.8); Eosinophils % 0.9 %; Hematocrit 47.2 % (42.0-52.0); Hemoglobin 14.9 g/dL (11.7-16.6); Lymphocytes # 2.6 10^3/uL (0.8-4.8); Mean Corpuscular HGB Conc 31.6 g/dL (30.0-36.0); Mean Corpuscular Hemoglobin 29.4 pg (28.0-34.0); Mean Corpuscular Volume 93.1 fl (80-94); Monocytes # 1.6 10^3/uL (0.2-0.9); Monocytes % 7.3 %; Neutrophils # 16.61 10^3/uL (1.8-7.7); Neutrophils % 75.8 %; Nucleated Red Blood Cells % 0 %; Platelet Count 483 10^3/cmm (130-400); Red Blood Count 5.07 10^6/uL (4.1-5.3); Red Cell Distribution Width 14.3 % (12.1-15.1); White Blood Count 21.9 10^3/uL (4.0-10.0)
[2023-04-07 12:56] LABS: Troponin(5th) Baseline 8 ng/L (0-15)
[2023-04-07 12:57] LABS: Alanine Aminotransferase 20 U/L (0-41); Alkaline Phosphatase 89 U/L (40-130); Anion Gap 18.3 (5-19); Aspartate Amino Transferase 11 U/L (0-40); Blood Urea Nitrogen 33 mg/dL (8-23); Carbon Dioxide 21 mmol/L (22-29); Chloride 101 mmol/L (98-107); Globulin 2.7 g/dL (1.3-4.6); Glucose 70 mg/dL (65-115); Osmolality Calculated 288 mOsm/kg (285-295); Potassium 4.3 mmol/L (3.5-5.1); Sodium 136 mmol/L (136-145); Total Bilirubin 0.3 mg/dL (0.15-1.2); Total Protein 6.7 g/dL (6.6-8.7)
--- NOTE | 2023-04-07 12:58 | ECG_ITS ---
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 Measurements Intervals [place] Rate: 70 P: 37 WV: 185 QRS: -20 QRSD: 90 T: 6 QT: 353 QTc: 383 Interpretive Statements SINUS RHYTHM LOW QRS VOLTAGE IN PRECORDIAL LEADS [QRS DEFLECTION < 1.0 mV IN CHEST LEADS] POSSIBLE RIGHT VENTRICULAR CONDUCTION DELAY [RSR (QR) IN V1/V2] ANTEROSEPTAL MYOCARDIAL INFARCTION , OF INDETERMINATE AGE [40+ ms Q WAVE IN V1-V4] Compared to ECG 04/01/2023 14:22:10 Low QRS voltage now present Myocardial infarct finding still present Electronically Signed On 04-07-2023 16:53:20 CDT by Bal Hunt M.D. [id number]
[2023-04-07 13:04] LABS: Add Urine Microscopic? NO; Charge for UA Resulting for Rev
[2023-04-07 13:15] LABS: Bilirubin Urine Neg (Negative); Blood Urine Neg (Negative); Glucose Urine UA Norm (Normal); Ketones Urine Negative (Negative); Leukocyte Esterase Urine Negative (Negative); Nitrate Urine Negative (Negative); Protein Urine Neg (Negative); Specific Gravity, Urine 1.015 (1.005-1.030); Urine Appearance Clear (CLEAR); Urine Color Yellow (Yellow); Urobilinogen Urine Neg (Negative); pH Urine 5 (5-7)
--- NOTE | 2023-04-07 14:09 | ECG_ITS ---
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 Measurements Intervals [place] Rate: 69 P: 27 SD: 183 QRS: -24 QRSD: 86 T: 7 QT: 363 QTc: 390 Interpretive Statements SINUS RHYTHM POSSIBLE RIGHT VENTRICULAR CONDUCTION DELAY [RSR (QR) IN V1/V2] ANTEROSEPTAL MYOCARDIAL INFARCTION , OF INDETERMINATE AGE [40+ ms Q WAVE IN V1-V4] Compared to ECG 04/07/2023 12:58:09 No significant changes Electronically Signed On 04-07-2023 16:56:50 CDT by Bal Hunt M.D. [id number]
[2023-04-07 14:59] LABS: Troponin 5 2HR 8.25 ng/L (0-15)
[2023-04-07 15:03] LABS: Troponin 5 2HR Delta 0.25 ABS# (0-10)
== END 2023-04-07 15:11 | disposition home or self-care (01) ==
PROVIDERS: Emergency Provider Family Medicine; PCP Nurse Practitioner Family
DX: I95.1 Orthostatic hypotension (principal); D72.829 Elevated white blood cell count, unspecified; J44.9 Chronic obstructive pulmonary disease, unspecified; Z87.891 Personal history of nicotine dependence
CPT/HCPCS: 36415; 71045; 80053; 81003; 84484; 85025; 87040; 93005; 99285

== ENCOUNTER 2023-04-08 08:36 | Emergency (ER) | payer MEDICARE, SELFPAY ==
[2023-04-08 08:42] VITALS: BP 128/72; PULSE 90; RESP 16; TEMP 37.1; O2SAT 98; BMI 22.8
--- NOTE | 2023-04-08 08:43 | ED_ITS ---
HPI - Abdominal Pain General: Chief Complaint: Abdominal Pain Stated Complaint: ABDOMINAL PAIN Time Seen by Provider: 04/08/23 08:43 Source: patient Mode of arrival: ambulatory History of Present Illness: 83-year-old male presents to the emergency room with complaint of abdominal pain yesterday was seen after near syncopal episode work-up was unremarkable. Today's complaining of sharp abdominal pain radiating across the epigastric area seems to initiate the left upper quadrant in [address] of the abdomen on the chart that showed a pancreatic mass he is does not appear to have any further work-up for that. He denies any hematochezia denies any fevers sweats or chills. Denies any cough or shortness of breath or chest pain at this time. MD elicited complaint: abdominal pain Pertinent past history: none Onset (ago): hour(s) Pain Consistency: constant Location: Epigastric and LUQ Severity: moderate Quality: cramping Exacerbating factors: nothing Relieving factors: nothing Associated Symptoms: Denies anorexia, belching, bloating, change in bowel habits, change in stool character, chills, coffee ground emesis, constipation, GI cramping, diarrhea, dyspepsia, dysuria, excessive flatus, fever(s), heartburn, hematochezia, hematuria, hematemesis, fecal incontinence, loose stools, melena, nausea, poor appetite, syncope and vomiting Review of Systems Const: Reports: fatigue and malaise; Denies: fever(s) or chills ENMT: Denies: throat pain, ear or mastoid pain, nasal discharge or nasal congestion Card: Denies: chest pain, palpitations, irregular heart rhythm, edema, swelling of feet/ankles or syncope Resp: Denies: dyspnea, productive cough or non-productive cough GI: Reports: abdominal pain; Denies: nausea, vomiting, hematemesis, coffee ground emesis, heartburn, diarrhea, constipation, bloating, GI cramping, belching, excessive flatus, fecal incontinence, change in bowel habits, change in stool character, hematochezia or melena : Denies: dysuria, urinary frequency, urinary urgency or hematuria Skin/Breast: Denies: rash or pruritus PFS ED PFSH: Medical History COPD exacerbation Hydroureteronephrosis No pertinent family history Pancreatic mass Social History Smoking and tobacco status: former smoker Quit status (tobacco): has quit using tobacco Year quit tobacco: 1988 Alcohol intake: never Substance/Drug Use: never Physical Exam Const: GENERAL APPEARANCE: cooperative and comfortable ORIENTATION/CONSCIOUSNESS: Yes awake, Yes oriented to person, Yes oriented to place and Yes oriented to time HENMT: COMMON NORMALS: normocephalic, atraumatic and hearing grossly normal b ilaterally HEAD & SCALP: normocephalic and atraumatic Resp: COMMON NORMALS: normal respiratory effort, No retractions, No use of accessory muscles and clear to auscultation bilaterally AUSCULTATION: clear to auscultation bilaterally Cardio: COMMON NORMALS: regular rate, regular rhythm and No murmurs present (Cardio) RATE: regular rate RHYTHM: regular rhythm GI: COMMON NORMALS: No hepatosplenomegaly present AUSCULTATION: Yes normoactive bowel sounds PALPATION: Yes Tenderness to palpation present (GI) (Epigastric left upper quadrant), No Guarding due to palpation present (GI) and Yes No hepatosplenomegaly present Extremity: COMMON NORMALS: normal to inspection, capillary refill normal, no clubbing, cyanosis or edema, no calf tenderness and no pedal edema Neuro: SENSORIUM/ORIENTATION: Yes oriented to person, Yes oriented to place and Yes oriented to time Skin: COMMON NORMALS: no rashes or lesions noted GENERAL SKIN EXAM: no rashes or lesions noted Course Vital Signs: Vital signs: Vital Signs Temperature 98.7 F 04/08/23 08:42 Pulse Rate 90 04/08/23 08:42 Respiratory Rate 16 04/08/23 08:42 Blood Pressure 128/72 04/08/23 09:40 Pulse Oximetry 98 04/08/23 08:42 Oxygen Delivery Me thod Nasal Cannula 04/08/23 08:42 Oxygen Flow Rate 3 04/08/23 08:42 MDM - Abdominal Pain Medical Decision Making Large pancreatic mass that was known previously and has been evaluated patient states been biopsied and was told it was benign has not not changed significantly according to Dr. Lyman when we discussed it. He does have moderate bilateral retained stool we will have him use lactulose to relieve that. He ambulates without difficulty is not having any further symptoms recommend he follow-up with his primary care doctor. Medical Records I reviewed the patient's medical records. Lab Data I reviewed the patient's lab results. 04/08/23 08:40 04/08/23 08:40 Labs/Radiology: Radiology Impressions Abdomen/Pelvis CT 04/08/23 08:57 IMPRESSION: 1. Large pancreatic head mass measures 6.5 x 5.4 x 5.2 cm. Mild increase in size since 06/09/2020. 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 Very similar in appearance to the prior examination. This may be be nign serous cystadenoma due to cyst long-term stability. There is significant atrophy of the pancreatic body and tail. 2. Normal appendix. 3. Distal colon constipation. Sigmoid anastomotic site is unremarkable. 4. Prior cholecystectomy. 5. Long-term moderate to severe LEFT hydronephrosis. Transition point in the proximal LEFT ureter. No change since 06/09/2020. Notified Francisco King DO at 04/08/2023 10:43 AM. Chest X-Ray 04/08/23 08:57 IMPRESSION: No acute findings. Laboratory Results WBC 26.8 10^3/uL (4.0-10.0) H 04/08/23 08:40 RBC 5.08 10^6/uL (4.1-5.3) 04/08/23 08:40 Hgb 14.9 g/dL (11.7-16.6) 04/08/23 08:40 Hct 47.4 % (42.0-52.0) 04/08/23 08:40 MCV 93.3 fl (80-94) 04/08/23 08:40 MCH 29.3 pg (28.0-34.0) 04/08/23 08:40 MCHC 31.4 g/dL (30.0-36.0) 04/08/23 08:40 RDW 14.2 % (12.1-15.1) 04/08/23 08:40 Plt Count 544 10^3/cmm (130-400) H 04/08/23 08:40 MPV 9.4 fL (7.4-10.4) 04/08/23 08:40 Lymph % (Auto) Not Reportable 04/08/23 08:40 [place] % (Auto) Not Reportable 04/08/23 08:40 Lymph # (Auto) Not Reportable 04/08/23 08:40 [place] # (Auto) Not Reportable 04/08/23 08:40 Total Counted 100 (0-100) 04/08/23 08:40 Atypical Lymphs % 13.0 % (0-5) H 04/08/23 08:40 Absolute Neutrophils 15.3 10^3/cmm (1.4-6.5) H 04/08/23 08:40 Segmented Neutrophils 57 % 04/08/23 08:40 Abs Segm Neuts (Man) 15.3 10/cmm (1.6-7.1) H 04/08/23 08:40 Band Neutrophils 0.0 % 04/08/23 08:40 Abs Band Neuts (Man) 0.0 10^3/cmm (0.0-1.2) 04/08/23 08:40 Absolute Lymphocytes 8.0 10^3/cmm (1.2-3.4) H 04/08/23 08:40 Lymphocytes (Manual) 17 % 04/08/23 08:40 Monocytes (Manual) 7.0 % 04/08/23 08:40 Absolute Monocytes 1.9 10^3/cmm (0.1-0.6) H 04/08/23 08:40 Eosinophils (Manual) 6 % 04/08/23 08:40 Absolute Eosinophils 1.6 10^3/cmm (0.0-0.7) H 04/08/23 08:40 Basophils (Manual) 0.0 % 04/08/23 08:40 Absolute Basophils 0.0 10^3/cmm (0.0-0.2) 04/08/23 08:40 Platelet Estimate Increased (Normal) 04/08/23 08:40 Sodium 137 mmol/L (136-145) 04/08/23 08:40 Potassium 4.0 mmol/L (3.5-5.1) 04/08/23 08:40 Chloride 100 mmol/L (98-107) 04/08/23 08:40 Carbon Dioxide 23 mmol/L (22-29) 04/08/23 08:40 Anion Gap 18.0 (5-19) 04/08/23 08:40 BUN 32 mg/dL (8-23) H 04/08/23 08:40 Creatinine 1.4 mg/dL (0.7-1.2) H 04/08/23 08:40 GFR Calculation Not Reportable 04/08/23 08:40 Glucose 116 mg/dL (65-115) H 04/08/23 08:40 Calculated Osmolality 292 mOsm/kg (285-295) 04/08/23 08:40 Calcium 9.1 mg/dL (8.5-10.5) 04/08/23 08:40 Total Bilirubin 0.4 mg/dL (0.15-1.2) 04/08/23 08:40 AST 13 U/L (0-40) 04/08/23 08:40 ALT 12 U/L (0-41) 04/08/23 08:40 Alkaline Phosphatase 98 U/L (40-130) 04/08/23 08:40 Total Protein 6.9 g/dL (6.6-8.7) 04/08/23 08:40 Albumin 4.1 g/dL (3.5-5.2) 04/08/23 08:40 Globulin 2.8 g/dL (1.3-4.6) 04/08/23 08:40 Lipase 18 U/L (13-60) 04/08/23 08:40 Discharge Plan Discharge Patient Disposition: Home Clinical Impression: Pancreatic mass, Constipation Condition: Stable Prescriptions: New lactulose 20 gram/30 mL solution 30 g PO Q2H 1 Days Qty: 540 0RF Rx Instructions: until desired laxative effect No Action finasteride 5 mg tablet 5 mg PO QAM albuterol sulfate [Ventolin HFA] 90 mcg/actuation HFA aerosol inhaler 2 puff INHALATION Q6H PRN (Reason: Shortness Of Breath) sertraline 50 mg tablet 50 mg PO QAM montelukast 10 mg tablet 10 mg PO BEDTIME atorvastatin 40 mg tablet 40 mg PO BEDTIME tamsulosin 0.4 mg capsule 0.4 mg PO QAM hydroxyzine HCl 50 mg tablet 50 mg PO BEDTIME levothyroxine 125 mcg tablet 125 mcg PO QAM Excedrin Migraine 250-250-65 mg Tablet 2 tab PO Q6H PRN (Reason: Pain) Anoro Ellipta 62.5-25 mcg/actuation blister with device 1 inh inhalation QAM pantoprazole 40 mg tablet,delayed release (DR/EC) 40 mg PO QAM fluticasone propionate [Flovent HFA] 110 mcg/actuation HFA aerosol inhaler 1 puff INHALATION BID doxycycline hyclate 100 mg capsule 100 mg PO BID 10 Days Qty: 20 0RF Rx Instructions: for 10 days (rx filled 04/01/23) methylprednisolone 4 mg tablets,dose pack See Rx Instructions .ROUTE .COMPLEX Qty: 21 0RF Rx Instructions: orally per package directions Discharge Orders: Discharge ED (Routine); Ordered 04/08/23 Ordered By: Francisco King Referrals: Angela Meléndez FNP [Primary Care Provider] - Discharge Diet: Advance as tolerated Discharge Activity: Increase activity as tolerated Patient Instructions: Constipation (ED), Opioid Safety, Pain Management Activity Restrictions/Additional Instructions: You are seen today with abdominal pain. CT did not show any increase in size of the pancreatic mass from 2020. Follow-up with your primary care to get fernadno to monitor this. You did have some moderate constipation you can use lactulose to relieve that increase oral fluid intake follow-up with your primary care doctor if there are further problems. Coding Level of Care Code ED Vehicle Glass Technician for Yisel Helton
--- NOTE | 2023-04-08 08:57 | XRR_ITS ---
PROCEDURE INFORMATION: Exam: XR Chest Exam date and time: 04/08/2023 9:07 AM Age: 83 years old Clinical indication: Cough and dyspnea; Additional info: Dyspnea/cough TECHNIQUE: Imaging protocol: Radiologic exam of the chest. Views: 1 view. COMPARISON: CR XR chest 1V portable [id number] 04/07/2023 12:15 PM FINDINGS: Lungs: Lungs are clear. Pleural spaces: There is no pleural effusion or pneumothorax. Heart/Mediastinum: Cardiomediastinal contours are unremarkable. Bones/joints: Bones are unremarkable. XR/XR chest 1V portable [id number] IMPRESSION: No acute findings.
--- NOTE | 2023-04-08 08:57 | CT_ITS ---
WS: [id number] CT ABDOMEN AND PELVIS WITH CONTRAST HISTORY: abd pain TECHNIQUE: Imaging performed of the abdomen and pelvis with IV contrast. Single phase imaging of the abdomen. Coronal and sagittal reformats are submitted. All CT scans at [facility] use at [address] one of these dose optimization techniques: automated exposure control; mA and/or kV adjustment per patient size (includes targeted exams where dose is matched to clinical indication); or iterative re construction. IV CONTRAST: Omnipaque 350; 100 mL IV. Oral contrast: No DLP: 440.91 mGy.cm COMPARISON: 06/09/2020 Lower thorax: Hyperexpanded lung bases from emphysema. Heart is normal size. Small hiatal hernia. Liver/biliary system: Normal size with no intrahepatic dilatation. Portal vein is patent. Patient has a known pancreatic head mass. This mass with partial encroachment into the main portal vein but no o cclusion at this time. Gallbladder: Cholecystectomy. Pancreas: Abnormal pancreas. Large mass at the pancreatic head measures 6.5 x 5.4 cm and extends over length of 5.2 cm. This is a low-attenuation, probable multicystic mass with only minimal increase in size since 06/09/2020. There is partial encroachment into the portal vein and the mass abuts probably 25% of the SMV. The body and tail of the pancreas are severely atrophied. Mass does not appear to be obstructing the common bile duct. Spleen: There are a few tiny low-attenuation nodules within the spleen which are too small to charact erize. Adrenal glands: Normal. Right kidney: Normal. Left kidney: Normal size kidney. There is marked central pelvic dilatation and calyceal dilatation. LEFT ureter is tortuous and dilated. Change in caliber of the proximal ureter suggesting a proximal s tricture. Very similar to the prior study. Aorta: Moderate atherosclerosis with no aneurysm. Lymphadenopathy: None. Free fluid: None. GI tract: Unremarkable stomach. No small bowel obstruction. Normal appendix. No colon obstruction. Si gmoid anastomotic sutures are reidentified. No mass. There is very mild thickening of the sigmoid col on but no obstructive pattern. Abdominal wall: Unremarkable abdominal wall. No hernia. Pelvis: Prostate enlargement. Urinary bladder is well distended. Bones: L1 vertebroplasty. CT/CT abdomen pelvis w con* [id number] IMPRESSION: 1. Large pancreatic head mass measures 6.5 x 5.4 x 5.2 cm. Mild increase in si ze since 06/09/2020. Multicystic mass with partial encroachment into the main po rtal vein. Very similar in appearance to the prior examination. This may be kareem ign serous cystadenoma due to cyst long-term stability. There is significant at rophy of the pancreatic body and tail. 2. Normal appendix. 3. Distal colon constipation. Sigmoid anastomotic site is unremarkable. 4. Prior cholecystectomy. 5. Long-term moderate to severe LEFT hydronephrosis. Transition point in the p roximal LEFT ureter. No change since 06/09/2020. Notified Francisco King DO at 04/08/2023 10:43 AM.
[2023-04-08 09:05] LABS: Hematocrit 47.4 % (42.0-52.0); Hemoglobin 14.9 g/dL (11.7-16.6); Mean Corpuscular HGB Conc 31.4 g/dL (30.0-36.0); Mean Corpuscular Hemoglobin 29.3 pg (28.0-34.0); Mean Corpuscular Volume 93.3 fl (80-94); Mean Platelet Volume 9.4 fL (7.4-10.4); Platelet Count 544 10^3/cmm (130-400); Red Blood Count 5.08 10^6/uL (4.1-5.3); Red Cell Distribution Width 14.2 % (12.1-15.1); White Blood Count 26.8 10^3/uL (4.0-10.0)
[2023-04-08 09:15] LABS: Alanine Aminotransferase 12 U/L (0-41); Albumin Level 4.1 g/dL (3.5-5.2); Alkaline Phosphatase 98 U/L (40-130); Aspartate Amino Transferase 13 U/L (0-40); Blood Urea Nitrogen 32 mg/dL (8-23); Calcium 9.1 mg/dL (8.5-10.5); Carbon Dioxide 23 mmol/L (22-29); Chloride 100 mmol/L (98-107); Globulin 2.8 g/dL (1.3-4.6); Glucose 116 mg/dL (65-115); Lipase 18 U/L (13-60); Osmolality Calculated 292 mOsm/kg (285-295); Sodium 137 mmol/L (136-145); Total Bilirubin 0.4 mg/dL (0.15-1.2); Total Protein 6.9 g/dL (6.6-8.7)
[2023-04-08] MEDS: iohexol 350 mg/mL 500 mL Btl (per mL) IV (09:26)
[2023-04-08 09:39] LABS: Slide Review Slide Review Perform
[2023-04-08 09:40] VITALS: BP 128/72
[2023-04-08 09:40] LABS: Absolute Eosinophils 1.6 10^3/cmm (0.0-0.7); Absolute Neutrophil 15.3 10^3/cmm (1.4-6.5); Absolute Segmented Neutrophil 15.3 10/cmm (1.6-7.1); Eosinophils 6 %; Lymphocytes 17 %; Monocytes Absolute 1.9 10^3/cmm (0.1-0.6); Platelet Estimate Increased (Normal); Segmented Neutrophils 57 %; Total Cells Counted 100 (0-100)
== END 2023-04-08 11:23 | disposition home or self-care (01) ==
PROVIDERS: Emergency Provider Family Medicine; PCP Nurse Practitioner Family
DX: K59.00 Constipation, unspecified (principal); R93.3 Abnormal findings on diagnostic imaging of other parts of digestive tract
CPT/HCPCS: 71045; 74177; 80053; 83690; 85007; 85025; 99285; Q9967

== ENCOUNTER 2023-04-13 11:00 | Emergency (ER) | payer MEDICARE, SELFPAY ==
[2023-04-13 11:24] VITALS: BP 101/69; PULSE 88; RESP 18; TEMP 36.9; O2SAT 95; BMI 22.0
--- NOTE | 2023-04-13 13:03 | ECG_ITS ---
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 Measurements Intervals [place] Rate: 96 P: 86 MI: 205 QRS: 20 QRSD: 87 T: 66 QT: 330 QTc: 417 Interpretive Statements SINUS RHYTHM INDETERMINATE AXIS POSSIBLE RIGHT VENTRICULAR CONDUCTION DELAY [RSR (QR) IN V1/V2] ANTEROSEPTAL MYOCARDIAL INFARCTION , OF INDETERMINATE AGE [40+ ms Q WAVE IN V1-V4] Compared to ECG 04/07/2023 14:16:12 Indeterminate axis now present Myocardial infarct finding still present Electronically Signed On 04-13-2023 16:27:17 CDT by Bal Hunt M.D. [id number]
--- NOTE | 2023-04-13 13:04 | XRR_ITS ---
PROCEDURE INFORMATION: Exam: XR Chest Exam date and time: 04/13/2023 1:08 PM Age: 83 years old Clinical indication: Cough; Additional info: Cough/dizziness TECHNIQUE: Imaging protocol: Radiologic exam of the chest. Views: 1 view. COMPARISON: CR XR chest 1V portable [id number] 04/08/2023 9:07 AM FINDINGS: Lungs: Suggestion of hyperinflation and minimal scarring. Minimal increased interstitial markings mid lateral right lung. No consolidation. Pleural spaces: Unremarkable. No pleural effusion. No pneumothorax. Heart/Mediastinum: Unremarkable. No cardiomegaly. Bones/joints: Prior vertebroplasty in a lower thoracic vertebra. Other findings: Minimal increased interstitial markings mid right lung appear new/more prominent in relation to prior exam.. XR/XR chest 1V [id number] IMPRESSION: Minimal interstitial infiltrate mid right lung. No consolidation.
[2023-04-13 13:11] LABS: Basophils # 0.1 10^3/uL (0.0-0.1); Basophils % 0.8 %; Eosinophils # 0.1 10^3/uL (0.0-0.8); Eosinophils % 0.7 %; Hematocrit 47.7 % (42.0-52.0); Lymphocytes # 1.3 10^3/uL (0.8-4.8); Lymphocytes % 9.7 %; Mean Corpuscular HGB Conc 31.4 g/dL (30.0-36.0); Mean Corpuscular Hemoglobin 29.5 pg (28.0-34.0); Mean Corpuscular Volume 93.7 fl (80-94); Mean Platelet Volume 9.8 fL (7.4-10.4); Monocytes # 1.6 10^3/uL (0.2-0.9); Monocytes % 12.6 %; Neutrophils # 9.86 10^3/uL (1.8-7.7); Neutrophils % 75.7 %; Nucleated Red Blood Cells % 0 %; Platelet Count 356 10^3/cmm (130-400); Red Blood Count 5.09 10^6/uL (4.1-5.3); Red Cell Distribution Width 14.1 % (12.1-15.1)
[2023-04-13] MEDS: sodium chloride 0.9% 1,000 ML 999 ML IV (13:15)
[2023-04-13 13:20] LABS: Alanine Aminotransferase 17 U/L (0-41); Alkaline Phosphatase 103 U/L (40-130); Anion Gap 16.5 (5-19); Aspartate Amino Transferase 18 U/L (0-40); Blood Urea Nitrogen 19 mg/dL (8-23); Carbon Dioxide 19 mmol/L (22-29); Chloride 104 mmol/L (98-107); Glucose 99 mg/dL (65-115); Lipase 21 U/L (13-60); Osmolality Calculated 282 mOsm/kg (285-295); Potassium 4.5 mmol/L (3.5-5.1); Sodium 135 mmol/L (136-145); Total Bilirubin 0.4 mg/dL (0.15-1.2)
--- NOTE | 2023-04-13 13:33 | W.ED.WEAKNES ---
HPI - Weakness General: Chief complaint: Weakness Stated complaint: fever, dizziness, bp low Time Seen by Provider: 04/13/23 12:48 Source: patient and family Mode of arrival: ambulatory Limitations: no limitations History of Present Illness: Patient presents emergency department today for evaluation treatment of complaints of continued dizziness, lightheadedness, fever and cough. Patient was seen here in the emergency department a couple of weeks ago for reported episode of dizziness while getting out of his car. Patient has COPD and, was indicating some upper respiratory symptoms and was put on steroids. Patient had another evaluation here in the emergency department more recently for epigastric abdominal discomfort. CT examination revealed slightly larger known benign pancreatic mass. Patient elevated white blood cell count however, was deemed to be secondary to steroid use as his evaluation was otherwise benign. Patient presents back today as he had return of dizziness-he reports being dizzy free this weekend. He states it started in the middle of the night and primarily only happens when he tries to stand up and walk. Patient states he notified his primary care doctor who referred him on here but, told him that his pancreatic mass may be pushing on his portal vein causing his dizziness. Patient has had no vomiting or diarrhea. He reports fever last night taken via axilla at 101. Patient has had a minimally productive cough. Review of Systems General: Reports: 10 or more systems reviewed and unremarkable except in HPI and below PFSH ED PFSH: Medical History COPD exacerbation Hydroureteronephrosis No pertinent family history Pancreatic mass Social History Smoking and tobacco status: former smoker Quit status (tobacco): has quit using tobacco Year quit tobacco: 1988 Alcohol intake: never Substance/Drug Use: never Physical Exam Const: COMMON NORMALS: no acute distress, average body habitus, patient oriented x3, no limitations and alert HENMT: COMMON NORMALS: hearing grossly normal bilaterally, Normal nasal mucous membranes and turbinates present, moist oral mucous membranes and dentition normal NOSE: Normal nasal mucous membranes and turbinates present Eye: COMMON NORMALS: Equal, round and reactive pupils present, EOMs intact bilaterally and conjunctivae normal CONJUNCTIVA: Yes conjunctivae normal PUPIL: Yes Equal, round and reactive pupils present Neck/C-Spine: COMMON NORMALS: full ROM and no meningeal signs Resp: COMMON NORMALS: normal respiratory effort and No retractions; negative for clear to auscultation bilaterally (Course lung sounds noted around the hilar region) AUSCULTATION: not clear to auscultation bilaterally (Course lung sounds noted around the hilar region) Cardio: COMMON NORMALS: regular rate and regular rhythm RATE: regular rate RHYTHM: regular rhythm GI: COMMON NORMALS: Normal to inspection, nondistended, normoactive bowel sounds present, Soft to palpation, non-tender and No hepatosplenomegaly present PALPATION: Yes Soft to palpation and Yes No hepatosplenomegaly present Extremity: COMMON NORMALS: normal to inspection, full ROM and no pedal edema Neuro: COMMON NORMALS: patient oriented x3 SENSORIUM/ORIENTATION: Yes alert MENINGEAL SIGNS: Yes no meningeal signs CRANIAL NERVES: Yes CN normal except as noted Skin: COMMON NORMALS: no rashes or lesions noted, turgor normal and no jaundice GENERAL SKIN EXAM: no rashes or lesions noted and turgor normal Course Vital Signs: Vital signs: Vital Signs Temperature 98.4 F 04/13/23 11:24 Pulse Rate 63 04/13/23 13:34 Respiratory Rate 18 04/13/23 11:24 Blood Pressure 123/57 04/13/23 15:00 Pulse Oximetry 95 04/13/23 15:00 Oxygen Delivery Me thod Room Air 04/13/23 15:00 MDM - Weakness Medical Decision Making Patient presents for continued issues with episodic, positional dizziness. Labs are stable and improved from last evaluation. XR suspicious for early onset RML pneumonia. Discussed case with Dr Johnson regarding patients recurrent dizziness. He agreed the CT evaluation of the head is about the only thing that has not been performed to rule out dizziness other than positional vertigo at this time. Discussed XR of the chest with the patient and need to start antibiotics but also talked about head CT. He states that his PCP had mentioned getting a head scan outpatient but would liek to proceed with one today. CT was neg for any acute concerns though there is a 50% stenosis of the right ICA noted. He also had an incidental finding of right upper lobe opacity (fibrotic) with recommendation for 3m CT followo up outpt. Discussed with patient. He is treated with meclazine and doxycycline today. he has a PCP appointment on the but requested sooner follow up if not improving or returning to ER if acutely worsening. He may benefit from PT to address his dizziness as well. Symptoms of stroke discussed. Patient verbalized understanding and agreement to the treatment plan. Differential Diagnosis Likely acute myocardial infarction, anemia (stroke, ICH, cerebellar infarct, vertebral artery issues, BPPV), sepsis and dehydration Lab Data 04/13/23 12:51 04/13/23 12:51 Radiology Impressions Chest X-Ray 04/13/23 13:04 IMPRESSION: Minimal interstitial infiltrate mid right lung. No consolidation. Head CT 04/13/23 15:15 IMPRESSION: 1. No evidence of intracranial hemorrhage or mass effect. 2. Mild small vessel changes. Moderate parenchymal volume loss. 3. No acute intracranial findings. Head/Neck CTA 04/13/23 15:15 IMPRESSION: 1. RIGHT ICA stenosis measures approximately 50%. No significant LEFT ICA stenosis. 2. Vertebral arteries are patent. 3. No flow-limiting intracranial stenosis. 4. Fibrotic slightly spiculated opacity RIGHT upper lobe. Recommend 3 month follow-up chest CT. This measures approximately 10 x 9 mm. Laboratory Results WBC 13.0 10^3/uL (4.0-10.0) H 04/13/23 12:51 RBC 5.09 10^6/uL (4.1-5.3) 04/13/23 12:51 Hgb 15.0 g/dL (11.7-16.6) 04/13/23 12:51 Hct 47.7 % (42.0-52.0) 04/13/23 12:51 MCV 93.7 fl (80-94) 04/13/23 12:51 MCH 29.5 pg (28.0-34.0) 04/13/23 12:51 MCHC 31.4 g/dL (30.0-36.0) 04/13/23 12:51 RDW 14.1 % (12.1-15.1) 04/13/23 12:51 Plt Count 356 10^3/cmm (130-400) 04/13/23 12:51 MPV 9.8 fL (7.4-10.4) 04/13/23 12:51 Neut % (Auto) 75.7 % 04/13/23 12:51 Lymph % (Auto) 9.7 % 04/13/23 12:51 Hayes % (Auto) 12.6 % 04/13/23 12:51 Eos % (Auto) 0.7 % 04/13/23 12:51 Baso % (Auto) 0.8 % 04/13/23 12:51 Neut # (Auto) 9.86 10^3/uL (1.8-7.7) H 04/13/23 12:51 Lymph # (Auto) 1.3 10^3/uL (0.8-4.8) 04/13/23 12:51 Hayes # (Auto) 1.6 10^3/uL (0.2-0.9) H 04/13/23 12:51 Eos # (Auto) 0.1 10^3/uL (0.0-0.8) 04/13/23 12:51 Baso # (Auto) 0.1 10^3/uL (0.0-0.1) 04/13/23 12:51 Nucleated RBC % (auto) 0 % 04/13/23 12:51 Nucleated RBCs # 0.0 /100WBC 04/13/23 12:51 Sodium 135 mmol/L (136-145) L 04/13/23 12:51 Potassium 4.5 mmol/L (3.5-5.1) 04/13/23 12:51 Chloride 104 mmol/L (98-107) 04/13/23 12:51 Carbon Dioxide 19 mmol/L (22-29) L 04/13/23 12:51 Anion Gap 16.5 (5-19) 04/13/23 12:51 BUN 19 mg/dL (8-23) 04/13/23 12:51 Creatinine 1.3 mg/dL (0.7-1.2) H 04/13/23 12:51 GFR Calculation Not Reportable 04/13/23 12:51 Glucose 99 mg/dL (65-115) 04/13/23 12:51 Calculated Osmolality 282 mOsm/kg (285-295) L 04/13/23 12:51 Calcium 9.0 mg/dL (8.5-10.5) 04/13/23 12:51 Total Bilirubin 0.4 mg/dL (0.15-1.2) 04/13/23 12:51 AST 18 U/L (0-40) 04/13/23 12:51 ALT 17 U/L (0-41) 04/13/23 12:51 Alkaline Phosphatase 103 U/L (40-130) 04/13/23 12:51 Total Protein 7.0 g/dL (6.6-8.7) 04/13/23 12:51 Albumin 4.0 g/dL (3.5-5.2) 04/13/23 12:51 Globulin 3.0 g/dL (1.3-4.6) 04/13/23 12:51 Lipase 21 U/L (13-60) 04/13/23 12:51 Urine Color Yellow (Yellow) 04/13/23 15:45 Urine Appearance Clear (CLEAR) 04/13/23 15:45 Urine pH 5 (5-7) 04/13/23 15:45 Ur Specific [place] 1.020 (1.005-1.030) 04/13/23 15:45 Urine Protein Neg (Negative) 04/13/23 15:45 Urine Glucose (UA) Norm (Normal) 04/13/23 15:45 Urine Ketones Negative (Negative) 04/13/23 15:45 Urine Blood Trace (Negative) H 04/13/23 15:45 Urine Nitrate Negative (Negative) 04/13/23 15:45 Urine Bilirubin Neg (Negative) 04/13/23 15:45 Urine Urobilinogen Norm mg/dL (Negative) 04/13/23 15:45 Ur Leukocyte Esterase Negative (Negative) 04/13/23 15:45 Urine RBC 0-4 /hpf (0-2) H 04/13/23 15:45 Urine WBC None /hpf (0-5) 04/13/23 15:45 Ur Squamous Epith Cells None /hpf (0-5) 04/13/23 15:45 Amorphous Sediment Not Reportable 04/13/23 15:45 Urine Bacteria Trace /hpf (NONE) 04/13/23 15:45 Hyaline Casts 0-4 /lpf H 04/13/23 15:45 Urine Mucus Trace /hpf 04/13/23 15:45 Discharge Plan Discharge Patient Disposition: Home Clinical Impression: RML pneumonia, Dizziness Condition: Stable Prescriptions: New meclizine 25 mg tablet 25 mg PO TID PRN (Reason: dizziness) Qty: 30 0RF doxycycline hyclate 100 mg tablet 100 mg PO BID 10 Days Qty: 20 0RF No Action finasteride 5 mg tablet 5 mg PO QAM albuterol sulfate [Ventolin HFA] 90 mcg/actuation HFA aerosol inhaler 2 puff INHALATION Q6H PRN (Reason: Shortness Of Breath) sertraline 50 mg tablet 50 mg PO QAM montelukast 10 mg tablet 10 mg PO BEDTIME atorvastatin 40 mg tablet 40 mg PO BEDTIME tamsulosin 0.4 mg capsule 0.4 mg PO QAM hydroxyzine HCl 50 mg tablet 50 mg PO BEDTIME levothyroxine 125 mcg tablet 125 mcg PO QAM Excedrin Migraine 250-250-65 mg Tablet 2 tab PO Q6H PRN (Reason: Migraine Headache) Anoro Ellipta 62.5-25 mcg/actuation blister with device 1 inh inhalation QAM prednisone 20 mg tablet 40 mg PO DAILY Rx Instructions: for 5 days (rx filled 04/10/23 pt not picked up from the pharmacy) lactulose [Constulose] 10 gram/15 mL solution See Rx Instructions .ROUTE .COMPLEX Rx Instructions: TAKE 45 ML BY MOUTH EVERY 2 HOURS UNTIL DESIRED LAXATIVE EFFECT NEEDED pantoprazole 40 mg tablet,delayed release (DR/EC) 40 mg PO QAM fluticasone propionate [Flovent HFA] 110 mcg/actuation HFA aerosol inhaler 1 puff INHALATION BID Discharge Orders: Discharge ED (Routine); Ordered 04/13/23 Ordered By: Jennifer Jacques Referrals: Angela Meléndez FNP [Primary Care Provider] - Discharge Diet: Usual diet Discharge Activity: Increase activity as tolerated Patient Instructions: Vertigo (ED), Pneumonia (ED) Activity Restrictions/Additional Instructions: Lab work today showed a slightly elevated white blood cell count. Chest x-ray confirms early onset of a right middle lobe pneumonia. Still, there was no significant finding to indicate reason for your dizziness so, we did proceed on with a head CT and a CTA of your neck and head as well. Findings were generally unremarkable. You did have a 50% stenosis found in your right ICA though your left side looked just fine. Incidentally, there is a right upper lobe opacity which appears somewhat fibrotic. It is recommended you have a general follow-up with a CT examination in 3 months with your primary care doctor. At this time, I do feel better about treating this as a positional vertigo. I am starting you on medication to help with vertigo but, do recommend following up with your primary care physician later this week or on your appointment next week to discuss the need for possible physical therapy to help with vertigo symptoms as well. I am starting you on antibiotics to help with the pneumonia. Again, if you are not noticing improvement I recommend moving up your primary care appointment or, if you acutely worsen need to return back here to the emergency department. 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
[2023-04-13 13:34] VITALS: BP 101/59; PULSE 63; O2SAT 94
[2023-04-13 15:00] VITALS: BP 123/57; O2SAT 95
--- NOTE | 2023-04-13 15:15 | CT_ITS ---
WS: [id number] CTA HEAD AND NECK TECHNIQUE: Contrast enhanced CTA of the head and neck with coronal and sagittal reformatted images an d maximum intensity projection (MIP) images. NASCET criteria utilized. CLINICAL INFORMATION: new onset dizziness COMPARISON: None. DLP: 442.[address] scans at [facility] use at least one of these dose optimization techniques: automated e xposure control; mA and/or kV adjustment per patient size (includes targeted exams where dose is matc hed to clinical indication); or iterative reconstruction. FINDINGS: RIGHT: RIGHT common carotid artery is patent. RIGHT ICA stenosis measuring 50%. ICA is patent to the skull base. LEFT: LEFT common carotid artery is patent. No significant LEFT ICA stenosis. LEFT ICA is patent to t he skull base. INTRACRANIAL CTA: RIGHT dominant vertebral artery. Both vertebral arteries are patent. Vertebral arteries are patent to the basilar junction. Basilar artery is patent. Normal vascularity to the [employer] territory bilaterally. Both ICAs are patent at the skull base. Cavernous carotid calcification. Normal vascularity to the AC A and MCA territories bilaterally. No evidence of proximal high-grade stenosis or aneurysm. Advanced chronic emphysematous changes in the lung apices. Fibrotic slightly spiculated opacity RIGHT upper lobe. Recommend 3 month follow-up chest CT. This measures approximately 10 x 9 mm. Normal posterior nasopharynx. Normal parapharyngeal fat. No cervical lymphadenopathy. Straightening o f the normal cervical lordosis. Mild spondylitic changes. CT/CT angio headne* [id number] IMPRESSION: 1. RIGHT ICA stenosis measures approximately 50%. No significant LEFT ICA sten osis. 2. Vertebral arteries are patent. 3. No flow-limiting intracranial stenosis. 4. Fibrotic slightly spiculated opacity RIGHT upper lobe. Recommend 3 month fo llow-up chest CT. This measures approximately 10 x 9 mm.
--- NOTE | 2023-04-13 15:15 | CT_ITS ---
WS: [id number] CT HEAD TECHNIQUE: Noncontrast CT of the head obtained from the skullbase to the vertex. CLINICAL INFORMATION: new onset dizziness COMPARISON: None. DLP: 1037.[address] scans at [facility] use at least one of these dose optimization techniques: automated e xposure control; mA and/or kV adjustment per patient size (includes targeted exams where dose is matc hed to clinical indication); or iterative reconstruction. FINDINGS: No evidence of intracranial hemorrhage or mass effect. Ventricular system and basal cisterns are mata nt. Mild small vessel changes with moderate parenchymal volume loss. No extra-axial fluid collections . No evidence of mass or mass effect. Paranasal sinuses and mastoid air cells are well aerated. Trace fluid LEFT maxillary sinus. .Normal v isualized soft tissues. Scleral banding RIGHT orbit. CT/CT head wo con* [id number] IMPRESSION: 1. No evidence of intracranial hemorrhage or mass effect. 2. Mild small vessel changes. Moderate parenchymal volume loss. 3. No acute intracranial findings.
[2023-04-13] MEDS: iohexol 350 mg/mL 500 mL Btl (per mL) IV (15:36)
[2023-04-13 16:31] LABS: Blood Urine Trace (Negative); Glucose Urine UA Norm (Normal); Ketones Urine Negative (Negative); Protein Urine Neg (Negative); Urine Appearance Clear (CLEAR); Urine Color Yellow (Yellow); pH Urine 5 (5-7)
[2023-04-13 16:33] LABS: Add Urine Microscopic? YES; Bacteria Urine TRACE /hpf; Bilirubin Urine Neg (Negative); Leukocyte Esterase Urine Negative (Negative); Mucus Urine TRACE /hpf; Nitrate Urine Negative (Negative); RBC Urine 0-4 /hpf (0-2); Urobilinogen Urine Norm (Negative)
[2023-04-13 16:34] LABS: Add Urine Culture? No; Hyaline Casts Urine 0-4 /lpf
== END 2023-04-13 17:00 | disposition home or self-care (01) ==
PROVIDERS: Emergency Provider Physician Assistant; PCP Nurse Practitioner Family
DX: J44.0 Chronic obstructive pulmonary disease with (acute) lower respiratory infection (principal); J18.8 Other pneumonia, unspecified organism; R42 Dizziness and giddiness; Z87.891 Personal history of nicotine dependence
CPT/HCPCS: 70450; 70496; 70498; 71045; 80053; 81001; 83690; 85025; 93005; 96360; 99285; J7030; Q9967

== ENCOUNTER 2023-04-20 09:31 | Observation (INO) | payer MEDICARE, SELFPAY ==
[2023-04-20] VITALS (13 sets, daily range): BP systolic 96–122; BP diastolic 53–64; PULSE 71–83; RESP 16–20; TEMP 36.8–37.7; O2SAT 90–95; BMI 22.8; BMI 23.1
--- NOTE | 2023-04-20 09:36 | XRR_ITS ---
PROCEDURE INFORMATION: Exam: XR Chest Exam date and time: 04/20/2023 8:45 AM Age: 83 years old Clinical indication: Other: Syncope TECHNIQUE: Imaging protocol: Radiologic exam of the chest. Views: 1 view. COMPARISON: CR (CHEST, ) 04/13/2023 1:08 PM FINDINGS: Lungs: Lungs are clear. Pleural spaces: There is no pleural effusion or pneumothorax. Heart/Mediastinum: Cardiomediastinal contours are unremarkable. Bones/joints: Bones are unremarkable. XR/XR chest 1V portable [id number] IMPRESSION: No acute findings.
--- NOTE | 2023-04-20 09:36 | ECG_ITS ---
[facility] Test Date: 2023-04-20 Pat Name: All Arias Department: Room: Gender: Male Quality Consultant: : 1940 Requested By: Hai Johnson Order Number: [id number] Jesse MD: Bal Hunt M.D. Measurements Intervals [place] Rate: 73 P: 68 TN: 197 QRS: 26 QRSD: 82 T: 67 QT: 346 QTc: 383 Interpretive Statements SINUS RHYTHM SEPTAL MYOCARDIAL INFARCTION , PROBABLY OLD [40+ ms Q WAVE IN V1/V2] Compared to ECG 04/13/2023 13:54:43 Indeterminate axis no longer present Myocardial infarct finding still present Electronically Signed On 04-20-2023 23:27:29 CDT by Bal Hunt M.D. [email or web address]
[2023-04-20 10:00] LABS: Basophils % 0.1 %; Eosinophils # 0.1 10^3/uL (0.0-0.8); Eosinophils % 0.4 %; Hematocrit 40.6 % (42.0-52.0); Hemoglobin 12.9 g/dL (11.7-16.6); Lymphocytes # 1.9 10^3/uL (0.8-4.8); Lymphocytes % 15.8 %; Mean Corpuscular HGB Conc 31.8 g/dL (30.0-36.0); Mean Corpuscular Hemoglobin 29.4 pg (28.0-34.0); Mean Corpuscular Volume 92.5 fl (80-94); Mean Platelet Volume 9.7 fL (7.4-10.4); Monocytes # 1.1 10^3/uL (0.2-0.9); Neutrophils # 8.73 10^3/uL (1.8-7.7); Nucleated Red Blood Cells % 0 %; Platelet Count 257 10^3/cmm (130-400); Red Blood Count 4.39 10^6/uL (4.1-5.3); Red Cell Distribution Width 14.7 % (12.1-15.1); White Blood Count 11.8 10^3/uL (4.0-10.0)
[2023-04-20 10:17] LABS: Alanine Aminotransferase 16 U/L (0-41); Albumin Level 3.2 g/dL (3.5-5.2); Alkaline Phosphatase 77 U/L (40-130); Anion Gap 16.8 (5-19); Aspartate Amino Transferase 13 U/L (0-40); Blood Urea Nitrogen 25 mg/dL (8-23); Calcium 8.5 mg/dL (8.5-10.5); Carbon Dioxide 23 mmol/L (22-29); Chloride 103 mmol/L (98-107); Globulin 2.6 g/dL (1.3-4.6); Glucose 90 mg/dL (65-115); Osmolality Calculated 292 mOsm/kg (285-295); Potassium 3.8 mmol/L (3.5-5.1); Sodium 139 mmol/L (136-145); Total Bilirubin 0.3 mg/dL (0.15-1.2); Total Protein 5.8 g/dL (6.6-8.7)
--- NOTE | 2023-04-20 10:37 | ED_ITS ---
HPI - Syncope General: Chief Complaint: Syncope Stated Complaint: SYNCOPAL Time Seen by Provider: 04/20/23 09:32 History of Present Illness: Patient presents with syncopal type episode earlier today. Patient's witnessed this episode. She says his eyes rolled back in his head he went stiff unresponsive. When he did come to he was confused for some time. Before he come back normal. Patient states these always happen in the morning and this is the fifth time within the last month. He has been seen here multiple times and work-up multiple times for this. and patient are at their wits end and do not know where to go from here. Patient said he was recently seen in diagnosed with pneumonia and is still currently on antibiotics. MD complaint: loss of consciousness Onset (ago): hour(s) (Earlier today) Description of event: post-event confusion Prodromal symptoms: none Witnessed: Yes - by Bystander () Context: at rest Injuries sustained associated with event: none Associated symptoms: Reports no associated symptoms History: previous syncopal episode Treatments prior to arrival: none PFS ED PFSH: Medical History (Updated 04/21/23 @ 00:01 by TAMI Adair) COPD exacerbation Hydroureteronephrosis Hyperlipidemia Hypothyroidism No pertinent family history Pancreatic mass Social History Smoking and tobacco status: former smoker Quit status (tobacco): has quit using tobacco Year quit tobacco: 1988 Alcohol intake: former Substance/Drug Use: never Lives independently: Yes Household members: spouse Marital status: Physical Exam Const: COMMON NORMALS: no acute distress, average body habitus, patient oriented x3, no limitations, healthy appearing, alert and well nourished HENMT: COMMON NORMALS: normocephalic, atraumatic, hearing grossly normal bilaterally, external ears normal, Normal external nose present and moist oral mucous membranes HEAD & SCALP: normocephalic and atraumatic NOSE: Normal external nose present EXTERNAL EAR: Yes external ears normal Eye: COMMON NORMALS: Equal, round and reactive pupils present, EOMs intact bilaterally, conjunctivae normal and no scleral icterus CONJUNCTIVA: Yes conjunctivae normal PUPIL: Yes Equal, round and reactive pupils present Neck/C-Spine: COMMON NORMALS: full ROM, no lymphadenopathy, supple, no meningeal signs, no JVD and Thyroid normal THYROID: Thyroid normal Lymph: LYMPHATIC: no lymphadenopathy noted Chest: COMMONS NORMALS: normal inspection of the chest and normal palpation of entire chest wall Resp: COMMON NORMALS: normal respiratory effort, No retractions, No use of accessory muscles and clear to auscultation bilaterally AUSCULTATION: clear to auscultation bilaterally Cardio: COMMON NORMALS: no JVD, regular rate, regular rhythm, S1 normal heart sound present, S2 normal heart sound present, No gallops present (Cardio), No clicks present (Cardio), No murmurs present (Cardio) and No rub (Cardio) RATE: regular rate RHYTHM: regular rhythm HEART SOUNDS: S1 normal heart sound present and S2 normal heart sound present GI: COMMON NORMALS: Normal to inspection, nondistended, normoactive bowel sounds present, Soft to palpation, non-tender, No hepatosplenomegaly present and no masses PALPATION: Yes Soft to palpation and Yes No hepatosplenomegaly present : COMMON NORMALS: Yes no CVA tenderness BLADDER/KIDNEY EXAM: Yes no CVA tenderness Back/Pelvis: COMMON NORMALS: no CVA tenderness Extremity: COMMON NORMALS: normal to inspection Neuro: COMMON NORMALS: patient oriented x3 SENSORIUM/ORIENTATION: Yes alert MENINGEAL SIGNS: Yes no meningeal signs Course Vital Signs: Vital signs: Vital Signs Temperature 99.8 F H 04/21/23 07:34 Pulse Rate 79 04/21/23 07:34 Respiratory Rate 16 04/21/23 07:34 Blood Pressure 95/59 04/21/23 07:34 Pulse Oximetry 92 04/21/23 07:34 Oxygen Delivery Me thod Nasal Cannula 04/21/23 07:34 Oxygen Flow Rate 2 04/21/23 07:32 MDM - Syncope Medical Decision Making Patient presents to the ER for a possible syncopal episode. Upon further history from family it appears patient may have had a seizure-like episode. Patient has had approximately 5 of these within the last 1 month. And has come to the ER been worked up for syncope and sent home. Patient's family is reluctant to take him home as they are worried 1 of these may happen again. His is afraid she is unable to take care of him. Patient was worked up in the standard usual fashion that included lab work, chest x-ray, imaging from prior visits was reviewed. Prolactin was elevated this time. Is felt patient may hav e a seizure like activity instead of a syncopal activity. This was discussed with the family. Dr. Barker was consulted and agreed to place the patient observation overnight. Patient's family known and excepted the fact that we do not have a neurologist on staff at at all times and they meant to have to follow-up with 1 in outpatient basis. Differential Diagnosis Unlikely syncope due to orthostatic hypotension, vasovagal syncope, complete atrioventricular block, subarachnoid hemorrhage, pulmonary embolism or dehydration Lab Data 04/20/23 09:53 04/20/23 09:53 Radiology Impressions Chest X-Ray 04/20/23 09:36 IMPRESSION: No acute findings. Laboratory Results WBC 11.8 10^3/uL (4.0-10.0) H 04/20/23 09:53 RBC 4.39 10^6/uL (4.1-5.3) 04/20/23 09:53 Hgb 12.9 g/dL (11.7-16.6) 04/20/23 09:53 Hct 40.6 % (42.0-52.0) L 04/20/23 09:53 MCV 92.5 fl (80-94) 04/20/23 09:53 MCH 29.4 pg (28.0-34.0) 04/20/23 09:53 MCHC 31.8 g/dL (30.0-36.0) 04/20/23 09:53 RDW 14.7 % (12.1-15.1) 04/20/23 09:53 Plt Count 257 10^3/cmm (130-400) 04/20/23 09:53 MPV 9.7 fL (7.4-10.4) 04/20/23 09:53 Neut % (Auto) 74.0 % 04/20/23 09:53 Lymph % (Auto) 15.8 % 04/20/23 09:53 [place] % (Auto) 9.0 % 04/20/23 09:53 Eos % (Auto) 0.4 % 04/20/23 09:53 Baso % (Auto) 0.1 % 04/20/23 09:53 Neut # (Auto) 8.73 10^3/uL (1.8-7.7) H 04/20/23 09:53 Lymph # (Auto) 1.9 10^3/uL (0.8-4.8) 04/20/23 09:53 [place] # (Auto) 1.1 10^3/uL (0.2-0.9) H 04/20/23 09:53 Eos # (Auto) 0.1 10^3/uL (0.0-0.8) 04/20/23 09:53 Baso # (Auto) 0.0 10^3/uL (0.0-0.1) 04/20/23 09:53 Nucleated RBC % (auto) 0 % 04/20/23 09:53 Nucleated RBCs # 0.0 /100WBC 04/20/23 09:53 D-Dimer 0.48 ug/mIFEU (0-0.59) 04/20/23 09:53 Sodium 139 mmol/L (136-145) 04/20/23 09:53 Potassium 3.8 mmol/L (3.5-5.1) 04/20/23 09:53 Chloride 103 mmol/L (98-107) 04/20/23 09:53 Carbon Dioxide 23 mmol/L (22-29) 04/20/23 09:53 Anion Gap 16.8 (5-19) 04/20/23 09:53 BUN 25 mg/dL (8-23) H 04/20/23 09:53 Creatinine 1.2 mg/dL (0.7-1.2) 04/20/23 09:53 GFR Calculation Not Reportable 04/20/23 09:53 Glucose 90 mg/dL (65-115) 04/20/23 09:53 Calculated Osmolality 292 mOsm/kg (285-295) 04/20/23 09:53 Calcium 8.5 mg/dL (8.5-10.5) 04/20/23 09:53 Magnesium 2.1 mg/dL (1.7-2.3) 04/20/23 09:53 Total Bilirubin 0.3 mg/dL (0.15-1.2) 04/20/23 09:53 AST 13 U/L (0-40) 04/20/23 09:53 ALT 16 U/L (0-41) 04/20/23 09:53 Alkaline Phosphatase 77 U/L (40-130) 04/20/23 09:53 Creatine Kinase 16 U/L (39-308) L 04/20/23 09:53 Troponin T Baseline 9 ng/L (0-15) 04/20/23 09:53 Troponin T 120 Minute 10.02 ng/L (0-15) 04/20/23 12:18 Delta Troponin T 0.02 ABS# (0-10) 04/20/23 12:18 Total Protein 5.8 g/dL (6.6-8.7) L 04/20/23 09:53 Albumin 3.2 g/dL (3.5-5.2) L 04/20/23 09:53 Globulin 2.6 g/dL (1.3-4.6) 04/20/23 09:53 TSH 4.03 uIU/mL (0.27-4.20) 04/20/23 09:53 Prolactin 41.19 ng/mL (4.0-15.2) H 04/20/23 09:53 Urine Color Yellow (Yellow) 04/20/23 10:38 Urine Appearance Clear (CLEAR) 04/20/23 10:38 Urine pH 6 (5-7) 04/20/23 10:38 Ur Specific Edgard 1.025 (1.005-1.030) 04/20/23 10:38 Urine Protein Neg (Negative) 04/20/23 10:38 Urine Glucose (UA) Norm (Normal) 04/20/23 10:38 Urine Ketones Negative (Negative) 04/20/23 10:38 Urine Blood 2+ (Negative) H 04/20/23 10:38 Urine Nitrate Negative (Negative) 04/20/23 10:38 Urine Bilirubin Neg (Negative) 04/20/23 10:38 Urine Urobilinogen Norm mg/dL (Negative) 04/20/23 10:38 Ur Leukocyte Esterase Negative (Negative) 04/20/23 10:38 Urine RBC None /hpf (0-2) 04/20/23 10:38 Urine WBC Rare /hpf (0-5) 04/20/23 10:38 Ur Squamous Epith Cells None /hpf (0-5) 04/20/23 10:38 Amorphous Sediment Not Reportable 04/20/23 10:38 Urine Bacteria None /hpf (NONE) 04/20/23 10:38 EKG Data EKG 1: I personally reviewed and interpreted this EKG as follows: EKG interpretation date: 04/20/23 EKG interpretation time: 09:34 Prior EKG tracings: not available for review Interpretation: Possible septalEKG showed normal sinus rhythm at 73 bpm, MO interval 197, QRS duration of 82, QTc of 372, myocardial infarction probably old with Q waves in V1 V2 EKG 2: I personally reviewed and interpreted this EKG as follows: EKG interpretation date: 04/20/23 EKG interpretation time: 12:30 Prior EKG tracings: available for review Interpretation: EKG showed normal sinus rhythm with ventricular rate of 77 bpm, MO interval 181, QRS duration 94, QTc of 379, septal myocardial infarction probably old Q waves in V1 and V2 Discharge Plan Discharge Patient Disposition: Placed in Observation Admit Provider: Ahmet Barker Clinical Impression: Seizure Coding Level of Care Code ED Acid Polymerization Operator for Farhatg Sunitha
[2023-04-20 11:24] LABS: Add Urine Microscopic? YES; Bilirubin Urine Neg (Negative); Blood Urine 2+ (Negative); Glucose Urine UA Norm (Normal); Ketones Urine Negative (Negative); Leukocyte Esterase Urine Negative (Negative); Nitrate Urine Negative (Negative); Protein Urine Neg (Negative); Specific Gravity, Urine 1.025 (1.005-1.030); Urine Appearance Clear (CLEAR); Urine Color Yellow (Yellow); Urobilinogen Urine Norm (Negative); WBC Urine RARE /hpf (0-5); pH Urine 6 (5-7)
[2023-04-20 11:36] LABS: Troponin(5th) Baseline 9 ng/L (0-15)
[2023-04-20 11:45] LABS: Magnesium 2.1 mg/dL (1.7-2.3); Prolactin 41.19 ng/mL (4.0-15.2)
--- NOTE | 2023-04-20 12:30 | ECG_ITS ---
[facility] Test Date: 2023-04-20 Pat Name: All Arias Department: Room: Gender: Male [employer] Supervisor: : 1940 Requested By: Hai Johnson Order Number: [id number] Jesse MD: Bal Hunt M.D. Measurements Intervals [place] Rate: 77 P: 71 AL: 181 QRS: 31 QRSD: 84 T: 74 QT: 348 QTc: 394 Interpretive Statements SINUS RHYTHM SEPTAL MYOCARDIAL INFARCTION , PROBABLY OLD [40+ ms Q WAVE IN V1/V2] Compared to ECG 04/20/2023 09:34:55 No significant changes Electronically Signed On 04-21-2023 8:30:52 CDT by Bal Hunt M.D. [id number]
[2023-04-20 12:54] LABS: Troponin 5 2HR 10.02 ng/L (0-15)
[2023-04-20 13:01] LABS: Troponin 5 2HR Delta 0.02 ABS# (0-10)
--- NOTE | 2023-04-20 16:14 | PC.NURSE ---
REPORT GIVEN TO TRINA SIERRAGATE TECHNICIAN.
--- NOTE | 2023-04-20 16:16 | P.HP_ITS ---
Providers/Chief Complaint Admitting Physician: Ahmet Barker Primary Care Provider: MARIJA Tucker Chief Complaint: SYNCOPAL History of Present Illness Pleasant 83-year-old gentleman is brought in for evaluation by his family due to episode of unresponsiveness. He has been having on and off episodes of lightheadedness with standing up, standing or walking, and has had several episodes of presyncope and/presyncope. A longer episode prior to the current was prior to last hospital evaluation, his states that at that time he was complaining of mid lower back pain, then was found unresponsive, stiffened, falling over into the bathtub but got braced by the shower chair. This time he was in the bathroom brushing his hair and became lightheaded, she found him sl umped over at the countertop, helped him over to the bed, then found him unresponsive, stiffened at the bed. She states that this time and last also saw his eyes rolled back. He states that this time she tried to get his pulse and could not. She states that all in all there have been about 5 episodes in the last month. Today he was out for about 30 seconds, he is she states that it took him about a minute to come to. Reportedly blood pressure was low when measured by EMS. No tongue biting, no urinary incontinence noted. He has been recovering from a respiratory infection, was treated with doxycycline, prednisone. He is normally on 2 L of oxygen chronically and has continued on this. Previously was diagnosed with orthostatic hypotension with noted positive orthostatic vital signs on the 16. They deny any recent medication changes. He had some nausea, and an episode of loose stool today. Denies otherwise any vomiting, abdominal pain or recurrent or persistent diarrhea. Denies chest pain or pressure. Denies cardiac history. Does not drink alcohol. In ER blood pressure WNL, EKG with sinus rhythm, Q waves in V1, V2. Baseline and 2-hour troponin normal. He is afebrile. Saturation 92-93% on 2 L. Leukocytosis 11.8, predominantly neutrophilic, BUN 25. Creatinine 1.2. Magnesium 2.1. UA unremarkable. Prolactin 41.19. Review of Systems Const: Denies: fever(s), chills, body aches or malaise Eyes: Denies: change in vision, eye discomfort or eye redness ENMT: Denies: throat pain, oral sores or ear or mastoid pain Card: Reports: syncope and pre-syncope; Denies: chest pain, palpitations, edema, swelling of feet/ankles or dyspnea on exertion Resp: Reports: productive cough (occ prod); Denies: dyspnea, change in phlegm color or hemoptysis GI: Reports: nausea and diarrhea (1 episode loose stool today); Denies: abdominal pain, vomiting, constipation, hematochezia or melena : Denies: flank pain, difficulty urinating, urinary frequency or hematuria Musc: Denies: back pain, joint swelling or joint redness Skin/Breast: Reports: other (cold sores lips, nose); Denies: rash or new lesions Neuro: Reports: dizziness; Denies: headache(s), numbness in extremities, weakness in extremities, confusion or involuntary movements Endo: Denies: polyuria or polydipsia Haim/Lymph: Denies: easy bleeding or tender lymph nodes All/Imm: Denies: urticaria or tongue swelling Medications/Allergies Home Medications Medication Instructions Recorded Confirmed Last Taken Type albuterol sulfate 90 mcg/actuation 2 puff inhalation Q6H PRN 03/22/20 04/20/23 Unknown History aerosol inhaler (Ventolin HFA) Shortness Of Breath finasteride 5 mg tablet 5 mg PO QAM 03/22/20 04/20/23 04/19/23 History montelukast 10 mg tablet 10 mg PO BEDTIME 03/22/20 04/20/23 04/19/23 History sertraline 50 mg tablet 50 mg PO QAM 03/22/20 04/20/23 04/19/23 History atorvastatin 40 mg tablet 40 mg PO BEDTIME 02/20/22 04/20/23 04/19/23 History tamsulosin 0.4 mg capsule 0.4 mg PO QAM 02/20/22 04/20/23 04/19/23 History fluticasone propionate 110 1 puff inhalation BID 04/01/23 04/20/23 04/20/23 History mcg/actuation HFA aerosol inhaler (Flovent HFA) pantoprazole 40 mg tablet,delayed 40 mg PO QAM 04/01/23 04/20/23 04/19/23 History release swazioi-xiepmarwfarfl-ehjxkcns 250 2 tab PO Q6H PRN Migraine Headache 04/07/23 04/20/23 Unknown History mg-250 mg-65 mg tablet (Excedrin Migraine) hydroxyzine HCl 50 mg tablet 50 mg PO BEDTIME 04/07/23 04/20/23 04/19/23 History levothyroxine 125 mcg tablet 125 mcg PO QAM 04/07/23 04/20/23 04/19/23 History umeclidinium 62.5 mcg-vilanterol 1 inh inhalation QAM 04/07/23 04/20/23 04/19/23 History 25 mcg/actuation powdr for inhalation (Anoro Ellipta) doxycycline hyclate 100 mg tablet 100 mg PO BID 10 days #20 tabs 04/13/23 04/20/23 04/19/23 Rx lactulose 10 gram/15 mL oral See Rx Instructions .Route .COMPLEX 04/13/23 04/20/23 Unknown History solution (Constulose) meclizine 25 mg tablet 25 mg PO TID PRN dizziness #30 tabs 04/13/23 04/20/23 Unknown Rx Allergies Allergy/AdvReac Type Severity Reaction Status Date / Time No Known Allergies Allergy Verified 04/20/23 09:38 PFSH Acute PFSH: Medical History (Updated 04/20/23 @ 16:45 by Ahmet Barker MD) COPD exacerbation Hydroureteronephrosis Hyperlipidemia Hypothyroidism No pertinent family history Pancreatic mass Social History Smoking and tobacco status: former smoker Quit status (tobacco): has quit using tobacco Year quit tobacco: 1988 Alcohol intake: former Substance/Drug Use: never Lives independently: Yes Household members: spouse Marital status: Vitals/I&O/Wt Last Vital Signs Temp 98.2 F 04/20/23 09:32 Pulse 73 04/20/23 09:39 Resp 20 H 04/20/23 09:39 BP 122/53 04/20/23 09:39 Pulse Ox 92 04/20/23 09:39 O2 Del Method Room Air 04/20/23 09:39 Weight last 48 hrs Weight 68.039 kg Physical Exam Narrative: and son-in-law at bedside Const: COMMON NORMALS: patient oriented x3 and alert GENERAL APPEARANCE: cooperative ORIENTATION/CONSCIOUSNESS: Yes awake HENMT: COMMON NORMALS: oropharynx normal Neck/C-Spine: COMMON NORMALS: no JVD Resp: COMMON NORMALS: normal respiratory effort and clear to auscultation bilaterally AUSCULTATION: clear to auscultation bilaterally Cardio: COMMON NORMALS: no JVD, regular rhythm, S1 normal heart sound present, S2 normal heart sound present and No murmurs present (Cardio) RHYTHM: regular rhythm HEART SOUNDS: S1 normal heart sound present and S2 normal heart sound present GI: COMMON NORMALS: Normal to inspection, nondistended, normoactive bowel sounds present, Soft to palpation and non-tender PALPATION: Yes Soft to palpation Extremity: COMMON NORMALS: no joint enlargement and no pedal edema OTHER: Healed prior lower extremity fracture Neuro: COMMON NORMALS: patient oriented x3 and moves all extremities SENSORIUM/ORIENTATION: Yes alert Skin: OTHER: Scabbed over lesions from herpes simplex on his right side upper lip, right side nose Data 04/20/23 09:53 04/20/23 09:53 A&P Assessment and plan (1) Recurrent episodes of unresponsiveness: Recurrent episodes of unresponsiveness. Discussed with him and his family currently unclear etiology, differential may be broad. He does have several conditions that may be contributing. For 1 he does have orthostatic hypotension as noted positive on vital signs with more than 20 mmHg drop in systolic blood pressure on 04/07. She does seem to also present orthostatic symptoms like today his lightheadedness was after standing and brushing his hair in the bathroom. However, subsequently syncopal episode with proceeded even despite his assi sting him to bed. He was seated, then reclined, became stiff and unresponsive. She states could not find pulse. Reportedly blood pressure was low when measured by EMS 60/40. Blood pressure is WNL in ER. In addition to orthostatic hypotension he does also wear oxygen and addressed currently saturation is 92-93% on his usual oxygen of 2 L by nasal cannula. It certainly it could be that with exertion his oxygenation drops down further causing him to become hypoxic, possibly leading to syncopal event. He has been also recovering from recent COPD exacerbation. Discussed with them additional possibilities, additional assessment for possibility of PE given cough, hypoxia. Recent illness. Discussed additional consideration of arrhythmia or other cardiac cause. Discussed further assessment with completion of troponin series, TTE, cardiac monitoring. Consideration of possibly heart monitor at discharge. On EKG on my interpretation does have V1/V2 Q waves. No prior cardiac issues that he knows of, no prior work-up. Follow-up to be, consider also referral for stress testing. Additional consideration of brief seizure episodes. He has prodromal symptoms, brevity of episodes and fairly rapid time in which he recovers/wakes up make seizures somewhat less likely. He does have prolactin elevation, although this may be from his recent syncopal episodes, but discussed with him and his family cannot entirely rule out that he does not have seizure episodes. As discussed currently no neurology and no EEGs available as per discussion with ER physician who had let them know, and they are aware and agreeable to still come in for initial work-up here. Discussed consideration of additional assessment by MRI. He has had CT head and CTA head and neck done recently. We discussed follow-up with outpatient EEG and follow-up with neurology. Discussed consideration of antiseizure medication given multiple episodes, however, on his day still would prefer for now to hold off starting medication in favor of additional work-up and follow-up. No history of hypoglycemia, glucose not low. In case of episode consider blood glucose check. With history of hypothyroidism we will additionally assess TSH, serum cortisol. Follow-up orthostatics. Assess D-dimer with consideration of possible VTE. (2) Orthostatic hypotension: Discussed with him consideration of holding tamsulosin. He denies any urinary symptoms recently. Hold tamsulosin for now. He states has not taken in the last 3 days. (3) COPD exacerbation: Recently treated for COPD exacerbation with doxycycline, prednisone. Finishing up antibiotic course. COPD exacerbation was accompanied by herpes simplex infection on his upper lip and nose, currently scabbed over. Reportedly he had a fever of 103 Fahrenheit per his during the last ER visit here, although I do not see fever on his vitals. He has been gradually recovering, but continues to have some cough, occasionally productive with sputum. Chest x-ray discussed with him and his family without infiltrate. He is on baseline oxygen. Will benefit from home O2 evaluation prior to discharge. (4) Herpes labialis: Scabbed over, healing. Has not had any confusion. (5) Hyperprolactinemia: Not entirely clear cause. Possibly secondary to syncopal episodes. As discussed with him and family cannot entirely exclude brief seizure episodes. Additional assessment with MRI brain. Plan COPD exacerbation: Continue doxycycline. DuoNebs. Albuterol as needed. Hypothyroidism HLD Pancreatic mass: On recent assessment appears unchanged from 2019 Spiculated lung nodule: Continue follow-up. Discussed with ER physician. Current and prior ER documentation reviewed. Attestations Medical Necessity Statement*: Place in observation for additional assessment management of multiple episodes of unresponsiveness in an elderly gentleman, further assessment for cardiac and/or neurogenic cause. Diagnoses Recurrent episodes of unresponsiveness R41.89 Orthostatic hypotension I95.1 COPD exacerbation J44.1 Herpes labialis B00.1 Hyperprolactinemia E22.1
--- NOTE | 2023-04-20 16:26 | ECG_ITS ---
[facility] Test Date: 2023-04-20 Pat Name: All Arias Department: Room: 273 Gender: Male Resp Therapist: : 1940 Requested By: Hai Johnson Order Number: [id number] Jesse MD: Bal Hunt M.D. Measurements Intervals [place] Rate: 74 P: 76 ID: [id number] QRS: 23 QRSD: 89 T: 68 QT: 351 QTc: 391 Interpretive Statements SINUS RHYTHM Compared to ECG 04/20/2023 12:30:58 Myocardial infarct finding no longer present Electronically Signed On 04-21-2023 8:30:27 CDT by Bal Hunt M.D. [id number]
--- NOTE | 2023-04-20 16:44 | USCV_ITS ---
All Arias Age: 83 Gender: M : 1940 Exam Date: 04/20/2023 18:31 Ordering Phys: Ahmet Barker MD Technologist: MERLIN Exam Location: [facility] [place] [facility] [place] Indication: 5 syncopal episodes in last month. Recent pneumonia. No history of cardiac intervention per patient. BP: 118 / 59 HR: 84 Rhythm: Sinus Technical Quality: Adequate MEASUREMENTS (Male / Female) Normal Values 2D ECHO LV Diastolic Diameter PLAX 3.5 cm 4.2 - 5.9 / 3.9 - 5.3 cm LV Systolic Diameter PLAX 2.3 cm IVS Diastolic Thickness 1.6 cm 0.6 - 1.0 / 0.6 - 0.9 cm IVS Systolic Thickness 1.8 cm LVPW Diastolic Thickness 1.0 cm 0.6 - 1.0 / 0.6 - 0.9 cm LVPW Systolic Thickness 1.6 cm LVOT Diameter 2.3 cm LV Ejection Fraction 2D Teich 64.6 % LV Ejection Fraction MOD 2C 63.9 % LV Ejection Fraction 2C AL 68.1 % LA Diameter 2.9 cm LA Width 2.9 cm LA Height 3.8 cm RA Width 4.2 cm RA Height 4.7 cm Aorta at Sinotubular Diameter 3.4 cm IVC Diameter 1.1 cm M-MODE Aortic Annulus Diameter 3.0 cm LA Ao Ratio MM 1.1 MV E Point Septal Separation 0.5 cm DOPPLER AV Peak Velocity 170.0 cm/s LVOT Peak Velocity 93.0 cm/s AV Area Cont Eq vti 2.1 cm squared AV Area Cont Eq pk 2.2 cm squared MV Area PHT 2.8 cm squared Mitral E to A Ratio 1.3 MV E' Velocity 42.5 cm/s Mitral E to MV E' Ratio 9.1 Mitral E to LV E' Lateral Ratio 8.1 Mitral E to LV E' Septal Ratio 10.4 TR Peak Velocity 233.0 cm/s TR Peak Gradient 21.7 mmHg TV Peak E Velocity 41.0 cm/s Right Atrial Pressure 5.0 mmHg Pulmonary Artery Systolic Pressu 26.7 mmHg PV Peak Velocity 120.0 cm/s RV Acceleration Time 0.1 s RV Ejection Time 0.3 s RV AcT/ET 0.4 FINDINGS Left Ventricle Left ventricle is normal in size. LV systolic function is normal with EF of 60 to 65%. No regional wall motion abnormalities are available. Right Ventricle Normal in size and function Right Atrium Normal in size Left Atrium Normal in size Mitral Valve Structurally normal mitral valve Aortic Valve Aortic valve is thickened. No significant stenosis or regurgitation. Tricuspid Valve Mild tricuspid regurgitation. Insufficient TR jet to calculate RVSP. Pulmonic Valve Not well-visualized. Pericardium Normal Aorta Normal in size IVC Appears to be normal CONCLUSIONS LV systolic function is normal with EF of 60 to 65%. Mild tricuspid regurgitation No comparison studies are available Bal Hunt MD (Electronically Signed) Final Date: 21 Apr 2023 12:11 S
[2023-04-20 16:48] LABS: D Dimer 0.48 ug/mIFEU (0-0.59)
[2023-04-20 16:53] LABS: Troponin 5 6HR 9.71 ng/L (0-15)
[2023-04-20 17:33] LABS: Troponin 5 6HR Delta 0.71 ng/L (0-12)
[2023-04-20 17:47] LABS: Creatine Phosphokinase 16 U/L (39-308); Thyroid Stimulating Hormone 4.03 uIU/mL (0.27-4.20)
[2023-04-20] MEDS: doxycycline 100 mg Tablet PO (17:59)
[2023-04-20] MEDS: lanolin oint 7 gm 1 APPLIC TOPICAL (20:46)
[2023-04-20] MEDS: montelukast sodium 10 mg Tablet PO (20:46)
[2023-04-20] MEDS: hyDROXYzine 25 mg Capsule 50 MG PO (20:46)
[2023-04-20] MEDS: atorvastatin 40 mg Tablet PO (20:47)
[2023-04-20] MEDS: budesonide 0.5 mg/2 mL Neb INHALATION (20:54)
[2023-04-20] MEDS: ipratropium-albuterol 3 mL Neb INHALATION (20:54)
[2023-04-21] VITALS (10 sets, daily range): BP systolic 95–111; BP diastolic 59–64; PULSE 63–81; RESP 16–18; TEMP 36.7–38.2; O2SAT 88–95; BMI 23.3
[2023-04-21] MEDS: pantoprazole DR 40 mg Tablet PO (05:30)
[2023-04-21] MEDS: finasteride 5 mg Tablet PO (05:30)
[2023-04-21] MEDS: levothyroxine 125 mcg Tablet PO (05:30)
[2023-04-21] MEDS: sertraline 50 mg Tablet PO (05:30)
--- NOTE | 2023-04-21 07:00 | MR_ITS ---
WS: [id number] MRI HEAD WITH CONTRAST TECHNIQUE: Sagittal T1, T2 axial, T2 axial FLAIR, axial susceptibility weighted imaging, axial diffus ion weighted images, and coronal T2 images were obtained. Pre and post-T1 axial and post T1 coronal i mages. ADC and FSPGR images. CLINICAL INFORMATION: unresponsive episodes, hyperprolactinemia COMPARISON: CT April 13, 2023 FINDINGS: No evidence of restricted diffusion to suggest acute ischemia. Ventricular system and basal cisterns are patent. Mild small vessel changes. Moderate parenchymal small vessel changes in the yang. Normal posterior fossa. Normal vascular flow voids at the skull base. No extra axial fluid collections. No e vidence of mass or mass effect. Mild mucosal thickening in the paranasal sinuses. Mastoid air cells a re well aerated. Normal posterior nasopharynx. Normal parapharyngeal fat. No hemosiderin on susceptibly weighted images. Normal optic chiasm and pituitary infundibulum. Modera te symmetric atrophy temporal lobes and hippocampal formations. Normal cavernous sinuses and Meckel's cave. No abnormal intracranial enhancement. Normal dural venous sinuses. Normal dural venous sinuses. Disc osteophyte complex C3-C4 with indentation on cervical cord. MR/MR head wo/w con [id number] IMPRESSION: 1. No evidence of restricted diffusion to suggest acute ischemia. 2. Mild small vessel changes.Moderate parenchymal volume loss. 3. No abnormal gadolinium enhancement. 4. No hemosiderin on susceptibly weighted images. 5. Mild mucosal thickening in the paranasal sinuses. 6. No other suspicious findings.
[2023-04-21] MEDS: ipratropium-albuterol 3 mL Neb INHALATION ×2 (07:32→14:19)
[2023-04-21] MEDS: budesonide 0.5 mg/2 mL Neb INHALATION (07:32)
[2023-04-21] MEDS: levoFLOXacin 750 mg Tablet PO (09:01)
[2023-04-21] MEDS: doxycycline 100 mg Tablet PO (09:01)
--- NOTE | 2023-04-21 09:25 | PC.CHAP ---
Pastoral Care Encounter/Spiritual Assessment Type of Contact [] Declined clay washer visit [] Patient/Family/Request visit [] Outpatient visit [] Follow-up visit [] Physician referral [] Code/Alert [x] Routine visit [] Staff referral [] Actively dying [] Patient sleeping [x] Family support [] [] Out of room [] Palliative care [] [] Receiving care in room [] Pre-surgical visit [] Trauma [] Long length of stay [] ICU visit [] Other: Relational/Emotional Strength [x] Patient feels connected with others/family/visitors/staff [] Distress [] Loneliness/isolation [] Abandonment Spirituality of Patient [x] Person of Tuyet [] Attends Confucianism of their Tuyet [x] Believes in Prayer [] Reads Bible or Confucianist materials [] There are Spiritual issues to be addressed Zigzag T[employer] Interventions [x] Prayer [] Active listening [] Non-anxious presence [x] Spiritual/emotional support [] Crisis/trauma care [] Spiritual counseling [] Bereavement support [] Provided bereavement packet [] Provided Bible/devotional materials [] Provided toy/stuffed animal, coloring book to patient or family member [] Provided Communion [] Anointing/Irons [] Salvation [x] Completed spiritual assessment [] Other: Impact on Illness or Injury [] Angry [] Fearful [] Anxious [] Often cries [] Exhaustion [] Unable to work [] Unable to attend scientology [] Unable to walk/stand [] Unable to read [] Unable to drive [] Unable to eat/drink [] Unable to sleep [] Unable to be with family [] Patient intubated [] Other: Summary Time spent with patient 5 min
[2023-04-21] MEDS: gadobenate dimeglumine 20 mL vial IV (09:51)
[2023-04-21] MEDS: acetaminophen 325 mg Tablet 650 MG PO (12:18)
[2023-04-21] MEDS: midodrine 5 mg TABLET PO (13:14)
--- NOTE | 2023-04-21 20:04 | P.DS_ITS ---
Discharge Providers Date of Admission: 04/20/23 15:53 Date of Discharge: April 21, 2023 Attending Provider at Admission: Ahmet Barker Attending Provider at Discharge: Ahmet Barker Primary Care Provider: MARIJA Tucker Diagnoses at Discharge Discharge Diagnosis (1) Recurrent episodes of unresponsiveness: Status: Acute (2) Orthostatic hypotension: Status: Inactive (3) COPD exacerbation: Status: Acute (4) Herpes labialis: Status: Acute (5) Hyperprolactinemia: Status: Acute Reason for Visit Reason for Visit: SYNCOPAL Brief History: Pleasant 83-year-old gentleman is brought in for evaluation by his family due to episode of unresponsiveness.? He has been having on and off episodes of lighthe adedness with standing up, standing or walking, and has had several episodes of presyncope and/presyncope.? A longer episode prior to the current was prior to last hospital evaluation, his states that at that time he was complaining of mid lower back pain, then was found unresponsive, stiffened, falling over into the bathtub but got braced by the shower chair.? This time he was in the bathroom brushing his hair and became lightheaded, she found him slumped over at the countertop, helped him over to the bed, then found him unresponsive, stiffened at the bed.? She states that this time and last also saw his eyes rolled back.? He states that this time she tried to get his pulse and could not.? She states that all in all there have been about 5 episodes in the last month.? Today he was out for about 30 seconds, he is she states that it took him about a minute to come to.? Reportedly blood pressure was low when measured by EMS. No tongue biting, no urinary incontinence noted.? He has been recovering from a respiratory infection, was treated with doxycycline, prednisone.? He is normally on 2 L of oxygen chronically and has continued on this.? Previously was diagnosed with orthostatic hypotension with noted positive orthostatic vital signs on the . They deny any recent medication changes.? He had some nausea, and an episode of loose stool today.? Denies otherwise any vomiting, abdominal pain or recurrent or persistent diarrhea.? Denies chest pain or pressure.? Denies cardiac history.? Does not drink alcohol. In ER blood pressure WNL, EKG with sinus rhythm, Q waves in V1, V2. Baseline and 2-hour troponin normal.? He is afebrile.? Saturation 92-93% on 2 L. Leukocytosis 11.8, predominantly neutrophilic, BUN 25.? Creatinine 1.2. Magnesium 2.1. UA unremarkable. Prolactin 41.19. Hospital Course Hospital Course No additional events during hospital stay. Troponin EKG series not suggestive of acute [place]/ischemia. D-dimer was unremarkable. Underwent echocardiogram which was unremarkable, similarly noted unremarkable MRI of the brain. TSH normal. Serum cortisol 8.7. Blood pressure is noted on the soft side, 100s over 60s, and with known orthostasis certainly a likely reason for his unresponsive/syncopal events. Oxygen saturation maintaining in the low 90s on his usual 2 L nasal cannula. Overnight did have a low-grade temp 100.7 Fahrenheit, although this morning feeling well without any untoward symptoms. Reviewing blood culture from prior admission was negative. CT scan of abdomen including unchanged mass without sign of infection. Leukocytosis noted has been gradually decreasing, trending towards normal, down to 11.8. Discussed with him and his further options. Discussed strict orthostatic precautions as well as close blood pressure monitoring and recording, we discussed detailed instructions with him and his (over the phone) in case of recurrence of lightheadedness, to lie down immediately, and states will check his vital signs including his pulse, oxygen saturation and blood pressure in case of an episode. She will also inquire regarding his symptoms. She knows in case symptoms not improving or additional syncope or other concerning symptoms to call 911 immediately. Discussed strict orthostatic precautions as it appears he may have been trying to fight against the symptoms inadvertently resulting in syncope. He is started on midodrine and tamsulosin for now is discontinued as per discussion. Please reassess his blood pressures. His will be monitoring his blood pressures and orthostatics at home several times a day and recording values. They are aware to return to the hospital in case of any worsening or any other concerning symptoms. Discussed additional assessment including with environmental monitoring specialist for 2 weeks. We are also referring her for a stress test. She is referred for EEG, although I still think seizure is rather less likely. On follow-up and with results available please consider whether referral to neurology is still needed. He is antibiotic course is extended further with Levaquin for suspected respiratory infection given still low-grade fever, please follow-up for continued recovery. Home oxygen evaluation was obtained prior to discharge to assess if exertional hypoxia is a contributing factor and he was confirmed requiring 2 L nasal cannula oxygen. Physical Exam Const: COMMON NORMALS: patient oriented x3 and alert GENERAL APPEARANCE: cooperative ORIENTATION/CONSCIOUSNESS: Yes awake HENMT: COMMON NORMALS: oropharynx normal Neck/C-Spine: COMMON NORMALS: no JVD Resp: COMMON NORMALS: normal respiratory effort and clear to auscultation bilaterally AUSCULTATION: clear to auscultation bilaterally Cardio: COMMON NORMALS: no JVD, regular rhythm, S1 normal heart sound present, S2 normal heart sound present and No murmurs present (Cardio) RHYTHM: regular rhythm HEART SOUNDS: S1 normal heart sound present and S2 normal heart sound present GI: COMMON NORMALS: Normal to inspection, nondistended, normoactive bowel sounds present, Soft to palpation and non-tender PALPATION: Yes Soft to palpation Extremity: COMMON NORMALS: no joint enlargement and no pedal edema OTHER: Healed prior lower extremity fracture Neuro: COMMON NORMALS: patient oriented x3 and moves all extremities SENSORIUM/ORIENTATION: Yes alert Skin: COMMON NORMALS: no rashes or lesions noted GENERAL SKIN EXAM: no rashes or lesions noted OTHER: Scabbed over lesions from herpes simplex on his right side upper lip, right side nose Discharge Data Studies Completed and Pending Completed Studies During Hospitalization Category Date Time Status XR chest 1V portable [id number] Stat Exams 04/20/23 09:36 Completed MR head wo/w con [id number] Routine MRI 04/21/23 07:00 Completed CV. echo complete* [id number] Routine Ultrasound 04/20/23 16:44 Completed Radiology Impressions Chest X-Ray 04/20/23 09:36 IMPRESSION: No acute findings. Head MRI 04/21/23 07:00 IMPRESSION: 1. No evidence of restricted diffusion to suggest acute ischemia. 2. Mild small vessel changes.Moderate parenchymal volume loss. 3. No abnormal gadolinium enhancement. 4. No hemosiderin on susceptibly weighted images. 5. Mild mucosal thickening in the paranasal sinuses. 6. No other suspicious findings. Laboratory Results WBC 11.8 10^3/uL (4.0-10.0) H 04/20/23 09:53 RBC 4.39 10^6/uL (4.1-5.3) 04/20/23 09:53 Hgb 12.9 g/dL (11.7-16.6) 04/20/23 09:53 Hct 40.6 % (42.0-52.0) L 04/20/23 09:53 MCV 92.5 fl (80-94) 04/20/23 09:53 MCH 29.4 pg (28.0-34.0) 04/20/23 09:53 MCHC 31.8 g/dL (30.0-36.0) 04/20/23 09:53 RDW 14.7 % (12.1-15.1) 04/20/23 09:53 Plt Count 257 10^3/cmm (130-400) 04/20/23 09:53 MPV 9.7 fL (7.4-10.4) 04/20/23 09:53 Neut % (Auto) 74.0 % 04/20/23 09:53 Lymph % (Auto) 15.8 % 04/20/23 09:53 Granite % (Auto) 9.0 % 04/20/23 09:53 Eos % (Auto) 0.4 % 04/20/23 09:53 Baso % (Auto) 0.1 % 04/20/23 09:53 Neut # (Auto) 8.73 10^3/uL (1.8-7.7) H 04/20/23 09:53 Lymph # (Auto) 1.9 10^3/uL (0.8-4.8) 04/20/23 09:53 Granite # (Auto) 1.1 10^3/uL (0.2-0.9) H 04/20/23 09:53 Eos # (Auto) 0.1 10^3/uL (0.0-0.8) 04/20/23 09:53 Baso # (Auto) 0.0 10^3/uL (0.0-0.1) 04/20/23 09:53 Nucleated RBC % (auto) 0 % 04/20/23 09:53 Nucleated RBCs # 0.0 /100WBC 04/20/23 09:53 D-Dimer 0.48 ug/mIFEU (0-0.59) 04/20/23 09:53 Sodium 139 mmol/L (136-145) 04/20/23 09:53 Potassium 3.8 mmol/L (3.5-5.1) 04/20/23 09:53 Chloride 103 mmol/L (98-107) 04/20/23 09:53 Carbon Dioxide 23 mmol/L (22-29) 04/20/23 09:53 Anion Gap 16.8 (5-19) 04/20/23 09:53 BUN 25 mg/dL (8-23) H 04/20/23 09:53 Creatinine 1.2 mg/dL (0.7-1.2) 04/20/23 09:53 GFR Calculation Not Reportable 04/20/23 09:53 Glucose 90 mg/dL (65-115) 04/20/23 09:53 Calculated Osmolality 292 mOsm/kg (285-295) 04/20/23 09:53 Calcium 8.5 mg/dL (8.5-10.5) 04/20/23 09:53 Magnesium 2.1 mg/dL (1.7-2.3) 04/20/23 09:53 Total Bilirubin 0.3 mg/dL (0.15-1.2) 04/20/23 09:53 AST 13 U/L (0-40) 04/20/23 09:53 ALT 16 U/L (0-41) 04/20/23 09:53 Alkaline Phosphatase 77 U/L (40-130) 04/20/23 09:53 Creatine Kinase 16 U/L (39-308) L 04/20/23 09:53 Troponin T Baseline 9 ng/L (0-15) 04/20/23 09:53 Troponin T 120 Minute 10.02 ng/L (0-15) 04/20/23 12:18 Delta Troponin T 0.02 ABS# (0-10) 04/20/23 12:18 Troponin T Hi Sens 6Hr 9.71 ng/L (0-15) 04/20/23 16:19 Troponin T Hi Sens 6Hr Delta 0.71 ng/L (0-12) 04/20/23 16:19 Total Protein 5.8 g/dL (6.6-8.7) L 04/20/23 09:53 Albumin 3.2 g/dL (3.5-5.2) L 04/20/23 09:53 Globulin 2.6 g/dL (1.3-4.6) 04/20/23 09:53 TSH 4.03 uIU/mL (0.27-4.20) 04/20/23 09:53 Prolactin 41.19 ng/mL (4.0-15.2) H 04/20/23 09:53 Random Cortisol 8.70 ug/dL (2.47-19.5) 04/21/23 04:59 Urine Color Yellow (Yellow) 04/20/23 10:38 Urine Appearance Clear (CLEAR) 04/20/23 10:38 Urine pH 6 (5-7) 04/20/23 10:38 Ur Specific Stacy 1.025 (1.005-1.030) 04/20/23 10:38 Urine Protein Neg (Negative) 04/20/23 10:38 Urine Glucose (UA) Norm (Normal) 04/20/23 10:38 Urine Ketones Negative (Negative) 04/20/23 10:38 Urine Blood 2+ (Negative) H 04/20/23 10:38 Urine Nitrate Negative (Negative) 04/20/23 10:38 Urine Bilirubin Neg (Negative) 04/20/23 10:38 Urine Urobilinogen Norm mg/dL (Negative) 04/20/23 10:38 Ur Leukocyte Esterase Negative (Negative) 04/20/23 10:38 Urine RBC None /hpf (0-2) 04/20/23 10:38 Urine WBC Rare /hpf (0-5) 04/20/23 10:38 Ur Squamous Epith Cells None /hpf (0-5) 04/20/23 10:38 Amorphous Sediment Not Reportable 04/20/23 10:38 Urine Bacteria None /hpf (NONE) 04/20/23 10:38 Vitals Last Vital Signs Temp 98.0 F 04/21/23 17:26 Pulse 63 04/21/23 17:26 Resp 18 04/21/23 17:26 BP 104/63 04/21/23 17:26 Pulse Ox 92 04/21/23 17:26 O2 Del Method Nasal Cannula 04/21/23 15:55 O2 Flow Rate 2 04/21/23 16:29 Discharge Plan Discharge Patient Disposition: Home Condition: Stable Prescriptions: New midodrine 5 mg Tablet 5 mg PO TID Qty: 90 0RF levofloxacin 750 mg Tablet 750 mg PO DAILY@0600 Qty: 7 0RF Continued finasteride 5 mg tablet 5 mg PO QAM albuterol sulfate [Ventolin HFA] 90 mcg/actuation HFA aerosol inhaler 2 puff INHALATION Q6H PRN (Reason: Shortness Of Breath) sertraline 50 mg tablet 50 mg PO QAM montelukast 10 mg tablet 10 mg PO BEDTIME atorvastatin 40 mg tablet 40 mg PO BEDTIME hydroxyzine HCl 50 mg tablet 50 mg PO BEDTIME levothyroxine 125 mcg tablet 125 mcg PO QAM Excedrin Migraine 250-250-65 mg Tablet 2 tab PO Q6H PRN (Reason: Migraine Headache) Anoro Ellipta 62.5-25 mcg/actuation blister with device 1 inh inhalation QAM lactulose [Constulose] 10 gram/15 mL solution See Rx Instructions .ROUTE .COMPLEX Rx Instructions: TAKE 45 ML BY MOUTH EVERY 2 HOURS UNTIL DESIRED LAXATIVE EFFECT NEEDED meclizine 25 mg tablet 25 mg PO TID PRN (Reason: dizziness) Qty: 30 0RF doxycycline hyclate 100 mg tablet 100 mg PO BID 10 Days Qty: 20 0RF pantoprazole 40 mg tablet,delayed release (DR/EC) 40 mg PO QAM fluticasone propionate [Flovent HFA] 110 mcg/actuation HFA aerosol inhaler 1 puff INHALATION BID Discontinued tamsulosin 0.4 mg capsule 0.4 mg PO QAM Discharge Orders: Discharge Order (Routine); Ordered 04/21/23 Ordered By: Ahmet Barker Other Ambulatory Orders: Sestamibi Stress Test Request (Routine) Timeframe: 2 Weeks Facility: [facility] - Location: Cardiac Diagnostic Laboratory Ordered By: Ahmet Barker EEG electroencephalogram (Routine) Timeframe: 3 Days Facility: [facility] - Location: Neurology Ordered By: Ahmet Barker MCT/Event Monitor 14 Days (Routine) Timeframe: 1 Day Facility: [facility] - Location: Radiology Ordered By: Ahmet Barker Referrals: Temi Diallo MD [Physician] - 04/23/23 1:00 pm (EEG) Angela Meléndez FNP [Primary Care Provider] - 06/15/23 2:00 pm Discharge Activity: Oxygen as instructed Patient Instructions: Midodrine (By mouth), Levofloxacin (By mouth), Hypotension (GEN), Syncope in Older Adults (GEN), Opioid Safety Activity Restrictions/Additional Instructions: Maintain strict orthostatic precautions as discussed. Lie down immediately in case feeling lightheaded, did not try to fight through the symptoms or you may be at risk of falling down with fainting with risk of severe injury. Monitor blood pressure twice daily, write down values. Measure blood pressures laying down sitting for 2 minutes and after standing for 2 minutes to get the best idea of higher blood pressures are when sitting or standing.. You are started on midodrine, follow-up with your primary doctor for reassessment of blood pressures, if needed increasing in dose of midodrine. As tamsulosin (Flomax) can decrease her blood pressure it is for now stopped. In case of feeling unwell immediately lie down, check heart rate, blood pressure. If symptoms are not improving or worsening call 911. Home oxygen study is requested as well, please keep oxygen flow as recommended at rest and with exertion. In case of feeling unwell check your oxygen saturation. Please have your primary doctor follow-up your blood pressures and for continued overall improvement. Please have your primary doctor reassess your white blood cell count as well and follow-up regarding recovery from pulmonary infection. With low-grade fever noted in the hospital your antibiotic course is further extended with Levaquin. In case you develop any worsening fever, abdominal pain or any other concerning symptoms, return to the hospital. Please complete the environmental monitoring specialist to assess for any abnormal heart rhythms, follow-up with your primary doctor. Discuss episodes with your primary provider at the appointment, complete EEG. Discussed whether neurology referral is still needed. Have your primary doctor reassess the cold sore lesions for resolution. Continue follow-up regarding other chronic conditions including spiculated lung nodule. After you recover from your lung infection, please also attend to the stress test. You are for now referred for 2 weeks from now, but please discuss with your primary doctor and scheduling department in case timing needs to be changed. Please do not drive until cleared to do so by her primary provider. APPOINTMENT FOR EEG AT DR GONZALES OFFICE ON MAY 04 AT 1:00 PM. [facility] WILL CALL WITH APPOINTMENT FOR STRESS TEST.[facility] WILL CALL WITH APPOINTMENT FOR HEART MONITOR Discharge Attestations Time Spent in Discharge Care*: greater than 30 min Quality Metrics Clinical Quality Measures [ No reported AMI, CVA or VTE this stay] Coding Level of Care Code Acute Code for Chg Fwd Diagnoses Recurrent episodes of unresponsiveness R41.89 Orthostatic hypotension I95.1 COPD exacerbation J44.1 Herpes labialis B00.1 Hyperprolactinemia E22.1
== END 2023-04-21 17:00 | disposition home or self-care (01) ==
LOC: ER 10:37 → MEDSURG 16:00
PROVIDERS: Admitting Provider Internal Medicine; Emergency Provider Emergency Medicine; PCP Nurse Practitioner Family; Visit Provider Internal Medicine
DX: R55 Syncope and collapse (principal); D72.829 Elevated white blood cell count, unspecified; Z79.82 Long term (current) use of aspirin; E03.9 Hypothyroidism, unspecified; E78.5 Hyperlipidemia, unspecified; Z87.891 Personal history of nicotine dependence; J44.9 Chronic obstructive pulmonary disease, unspecified; B00.1 Herpesviral vesicular dermatitis; I34.0 Nonrheumatic mitral (valve) insufficiency
CPT/HCPCS: 36415; 70553; 71045; 80053; 81001; 82533; 82550; 83735; 84146; 84443; 84484; 85025; 85378; 93005; 93306; 94640; 94760; 99285; A9577; G0378; J7626

== ENCOUNTER → 2023-06-17 09:58 | Outpatient (BNVA) | payer MEDICARE, SELFPAY | PROVIDERS: PCP Nurse Practitioner Family; Visit Provider Internal Medicine Pulmonary Disease | DX: J44.9 Chronic obstructive pulmonary disease, unspecified; Z87.891 Personal history of nicotine dependence; K86.89 Other specified diseases of pancreas; I95.1 Orthostatic hypotension; R91.8 Other nonspecific abnormal finding of lung field; G47.33 Obstructive sleep apnea (adult) (pediatric); Z99.81 Dependence on supplemental oxygen | CPT/HCPCS: 99214 ==

== ENCOUNTER → 2023-10-19 11:40 | Outpatient (BNVA) | payer MEDICARE, SELFPAY | PROVIDERS: PCP Nurse Practitioner Family; Visit Provider Internal Medicine Pulmonary Disease | DX: J43.2 Centrilobular emphysema (principal); Z87.891 Personal history of nicotine dependence; K86.89 Other specified diseases of pancreas; I95.1 Orthostatic hypotension; R91.8 Other nonspecific abnormal finding of lung field; Z99.81 Dependence on supplemental oxygen | CPT/HCPCS: 71046; 99214 ==

== ENCOUNTER 2023-10-27 14:17 | Outpatient (CLI) | payer MEDICARE, SELFPAY ==
--- NOTE | 2023-10-27 15:00 | CTR_ITS ---
PROCEDURE INFORMATION: Exam: CT Chest Without Contrast; Diagnostic Exam date and time: 10/27/2023 2:35 PM Age: 83 years old Clinical indication: Abnormal findings; Abnormal radiologic exam of lung or chest; Shortness of breath; Patient HX: Copd with interval development of 2 small indistinct nodular densities right. Upper lobe. Recommend follow-up nonemergent CT chest for further assessment. Cxr 10/19/23. HX of colon cancer; Additional info: Lung screening TECHNIQUE: Imaging protocol: Diagnostic computed tomography of the chest without contrast. Radiation optimization: All CT scans at this facility use at least one of these dose optimization techniques: automated exposure control; mA and/or kV adjustment per patient size (includes targeted exams where dose is matched to clinical indication); or iterative reconstruction. REPORTING DATA: Count of CT and Cardiac NM exams in prior 12 months: This patient has received 3 known CTs and 0 known cardiac nuclear medicine studies in the 12 months prior to the current study. COMPARISON: CR XR chest 2V* [id number] 10/19/2023 11:[address] abdomen and pelvis June 09, 2020. RADIATION DOSE METRICS: Total DLP (mGy-cm): 371.73 FINDINGS: Lungs: Bilateral bullous emphysema with hyperexpansion of the lungs. 2 cm x 1 cm by 0.7 cm slightly irregular noncalcified nodule lateral right upper lung. A few other much smaller noncalcified nodules are in both lungs. A few areas of pulmonary scarring. Otherwise, unremarkable. Pleural spaces: Unremarkable. No pneumothorax. No pleural effusion. Heart: Unremarkable. No cardiomegaly. No pericardial effusion. Coronary arteries: Tiny amount of coronary artery calcification. Lymph nodes: Unremarkable. No enlarged lymph nodes. Vasculature: Small amount of aortic calcification. Gallbladder and bile ducts: Unchanged cholecystectomy. Unremarkable visualized bile ducts. Pancreas: A 7 cm x 6 cm pancreatic head mass is partially in the field of view. On the previous CT this measured 5.6 cm x 5 cm. This could be a slow growing malignancy. Please correlate with any previous biopsies. This mass may be invading into the duodenum. The remainder of the visualized pancreas is atrophic. Kidneys and ureters: Moderate left hydronephrosis is partially in the field of view. This is probably unchanged. Bones/joints: Thoracic ankylosis, mild kyphosis, and mild scoliosis with mild multilevel spondylosis. Osteoplasty cement in a moderately compressed L1 vertebral body. Otherwise, unremarkable. Soft tissues: Unremarkable. CT/CT chest wo con [id number] IMPRESSION: 1. Noncalcified pulmonary nodules. Highly suspicious nodule(s). Consider non-emergent PET/CT, or tissue sampling of the largest nodule in the right upper lung.(Reference: Michael) 2. Slowly growing pancreatic head mass could be slowly growing malignancy. Please correlate with any previous biopsies. This may be invading the duodenum. 3. Moderate left hydronephrosis is probably unchanged. 4. Bilateral bullous emphysema. 5. Additional details as above. REFERENCES: Michael Zabala, et al. Guidelines for Management of Incidental Pulmonary Nodules Detected on CT Images: From the Fleischner Society 2017. Radiology. 2017;284(1):228-243.
== END 2023-10-27 14:18 | disposition home or self-care (01) ==
LOC: RAD 14:17
PROVIDERS: PCP Nurse Practitioner Family; Visit Provider Internal Medicine Pulmonary Disease
DX: J44.1 Chronic obstructive pulmonary disease with (acute) exacerbation (principal); J44.9 Chronic obstructive pulmonary disease, unspecified; N13.30 Unspecified hydronephrosis; J43.8 Other emphysema; R91.8 Other nonspecific abnormal finding of lung field; K86.9 Disease of pancreas, unspecified
CPT/HCPCS: 71250

== ENCOUNTER 2023-11-05 07:43 | Outpatient (CLI) | payer MEDICARE, SELFPAY ==
[2023-11-05 08:07] VITALS: PULSE 94; RESP 18; O2SAT 96
[2023-11-05] MEDS: albuterol 2.5 mg/3 mL Neb INHALATION (08:07)
[2023-11-05 08:12] VITALS: PULSE 95
== END 2023-11-05 07:44 | disposition home or self-care (01) ==
PROVIDERS: PCP Nurse Practitioner Family; Visit Provider Internal Medicine Pulmonary Disease
DX: J44.9 Chronic obstructive pulmonary disease, unspecified (principal)
CPT/HCPCS: 94060; 94618; 94729; J7613

== ENCOUNTER 2023-11-24 08:01 | Outpatient (CLI) | payer MEDICARE, MEDICAID, SELFPAY ==
--- NOTE | 2023-11-24 14:06 | PET_ITS ---
[facility] Final Radiology Report Call: [phone] assistance Online chat: [email or web address] Name: RADHA LEE Age: 83Years M Date: 11/24/2023 SSN: -- : [id number] Study: PET/CT SKULL BASE TO MID THIGH Requesting Physician: MACO VALENZUELA Images: [id number] Provided Clinical History: Abnormal CT PROCEDURE INFORMATION: Exam: PET/CT Skull Base to Mid-thigh Exam date and time: 11/24/2023 9:03 AM Age: 83 years old Clinical indication: Abnormal findings; Noncalcified pulmonary nodules. Highly suspicious nodule(s). Consider. Non-emergent pet/ct, or tissue sampling of the largest nodule in the right. Upper lung; Patient HX: HX of colon cancer; Additional info: Abnormal CT LABS AND CLINICAL REPORTS: Glucose: 113 mg/dl Treatment strategy for malignancy (PET staging): Initial Staging (PI) TECHNIQUE: Imaging protocol: Following at least four-hour fasting and following the injection of radiopharmaceutical, low dose CT images were obtained. Then, PET images were obtained. Attenuation corrected images were constructed using the CT scan. Fused images of PET and CT were reviewed. The standardized uptake values (SUV) reported below are maximum values within a region of interest, expressed in gm/ml. Exam includes orbital meatal line to mid-thigh. Radiopharmaceutical: 12.5 mCi F-18 FDG (Fluorodeoxyglucose), IV. Time of imaging post radiopharmaceutical administration: 1 hour Injection site: Right antecubital COMPARISON: CT chest wo con [id number] 10/27/2023 2:35 PM, CTA head and neck 04/13/2023, CT abdomen and pelvis 04/08/2023, CT neck 11/08/2019 FINDINGS: Brain: Visualized brain has normal physiologic uptake. Pharynx: No abnormal uptake. Larynx: No abnormal uptake. Lungs, pleura and trachea: No abnormal uptake. A lateral right upper lobe ovoid region of spiculated soft tissue density nodularity measuring 1.9 x 1.0 cm in the axial plane on series 3, image 71 demonstrates an SUV max 1.3. This appears similar compared with 10/27/2023 and the CTA neck 04/13/2023 allowing for slight differences in measurement technique between the current and previous examinations. It is slightly increased in size compared with the CT neck 11/08/2019 where it measured approximately 7 mm. A non radiotracer avid lateral solid right lower lobe 3 mm nodule on series 3, image 93 is present. Heart: Normal physiologic uptake. Mediastinal space: No abnormal uptake. Liver: No abnormal uptake. Gallbladder and bile ducts: No abnormal uptake. Cholecystectomy clips are present. Pancreas: A heterogeneously hypodense pancreatic head mass measures 6.6 x 4.8 cm in the axial plane on series 3, image 142, SUV max 3.6. It appears similar in size since at least 04/08/2023 There is similar diminutive size of pancreatic body and tail. Spleen: No abnormal uptake. Adrenal glands: No abnormal uptake. Kidneys and ureters: Normal physiologic uptake. Severe left hydronephrosis is similar compared with 04/08/2023 with similar moderate dilatation of the left ureter to the level of the left pelvic sidewall without evidence of an obstructing ureteral calculus. Stomach and bowel: A surgical anastomotic staple line is noted within the distal sigmoid colon. There is a decompressed appearance of the sigmoid colon and rectum distal to this region with elevated uptake, SUV max 15.2. Assessment of the wall of the bowel in this region is limited by the degree of incomplete distension. Vasculature: No abnormal uptake. There are diffuse atherosclerotic changes. Lymph nodes: No abnormal uptake. No lymphadenopathy in the head, neck, chest, abdomen, pelvis, and extremities. Bones/joints: No abnormal uptake in the visualized axial and appendicular skeleton. There is mild diffuse vertebral body spondylosis. Vertebroplasty cement is noted in a moderate vertebral body compression fracture involving L1. No acute fracture is identified. The bones appear demineralized. Soft tissues: No abnormal uptake in the visualized head, neck, chest, abdomen, pelvis, and extremities. METRICS: Mediastinal blood pool: SUV max 2.9 IMPRESSION: 1. A spiculated lateral right upper lobe pulmonary nodule is similar in size compared with 10/27/2023 and is increased compared with 11/08/2019. It is without significant uptake (SUV max 1.3), which is less than mediastinal blood pool activity favoring a benign etiology. 2. A small right lower lobe nodule is present without elevated uptake. Assessment of small nodules can be limited by PET-CT. 3. Similar size of a known mass in the pancreatic head demonstrating elevated uptake (SUV max 3.6) for which malignancy cannot be excluded. Correlation with previous clinical history including possible previous biopsies (if applicable) is recommended. 4. Similar chronic appearing left hydronephrosis and dilatation of the proximal to mid left ureter. 5. Elevated uptake in the sigmoid colon and rectum is noted downstream from the sigmoid surgical anastomotic staple line. Although this may represent normal physiologic uptake, assessment of the wall is limited and the possibility of colitis, proctitis or malignant involvement cannot be entirely excluded. 6. Additional nonurgent findings as detailed above. Thank you for allowing us to participate in the care of your patient. Dictated and Authenticated by: Abby Mejia MD 11/25/2023 3:39 PM Central Time ([place] & [place]) [facility]
== END 2023-11-24 08:02 | disposition home or self-care (01) ==
LOC: RAD 08:03
PROVIDERS: PCP Nurse Practitioner Family; Visit Provider Internal Medicine Pulmonary Disease
DX: R91.8 Other nonspecific abnormal finding of lung field; Z85.038 Personal history of other malignant neoplasm of large intestine; K86.9 Disease of pancreas, unspecified; N13.30 Unspecified hydronephrosis
CPT/HCPCS: 78815; A9552

== ENCOUNTER 2024-04-13 13:02 | Emergency (ER) | payer MEDICARE, SELFPAY ==
[2024-04-13 13:03] VITALS: BP 141/78; PULSE 78; RESP 20; TEMP 36.5; O2SAT 97; BMI 24.3
--- NOTE | 2024-04-13 13:16 | XR_ITS ---
WS: [id number] Portable AP upright chest, 04/13/2024 Clinical Data: sob Comparison: Chest 2 view, 10/19/2023 Findings: No masses or effusions are seen. The heart is normal. The pulmonary vascularity is not incr eased. No pneumonia or pneumothorax is seen. The diaphragms are flattened. There is a small periphera l density in the right upper lobe unchanged. XR/XR chest 1V portable [id number] Impression: 1. Hyperinflation. 2. Poorly outlined right upper lobe nodule adjacent to the lateral aspect of th e right fourth rib unchanged
--- NOTE | 2024-04-13 13:17 | ECG_ITS ---
[facility] Test Date: 2024-04-13 Pat Name: All Arias Department: Room: Gender: Male Lead Application Architect: : 1940 Requested By: Elio De La Garza Order Number: [id number] Jesse MD: Randy Brito M.D. Measurements Intervals [place] Rate: 80 P: 78 NM: 211 QRS: -53 QRSD: 132 T: 98 QT: 389 QTc: 451 Interpretive Statements SINUS RHYTHM WITH FIRST DEGREE AV BLOCK LEFT AXIS DEVIATION [QRS AXIS < -30] LEFT BUNDLE BRANCH BLOCK [120+ ms QRS DURATION, 80+ ms Q/S IN V1/V2, 85+ ms R IN I/aVL/V5/V6] Compared to ECG 04/20/2023 16:26:07 First degree AV block now present Left-axis deviation now present Left bundle-branch block now present Electronically Signed On 04-13-2024 18:12:47 CDT by Randy Brito M.D. [id number]
[2024-04-13 13:55] LABS: Basophils # 0.1 10^3/uL (0.0-0.1); Basophils % 1.2 %; Eosinophils # 0.7 10^3/uL (0.0-0.8); Eosinophils % 6.6 %; Hematocrit 46.3 % (37-53); Lymphocytes # 1.9 10^3/uL (0.8-4.8); Lymphocytes % 19.1 %; Mean Corpuscular HGB Conc 31.7 g/dL (30-55); Mean Corpuscular Hemoglobin 29.7 pg (27-33); Mean Corpuscular Volume 93.5 fl (82-101); Mean Platelet Volume 9.8 fL (7.4-10.4); Monocytes % 10.4 %; Neutrophils # 6.16 10^3/uL (1.8-7.7); Neutrophils % 62.2 %; Nucleated Red Blood Cells % 0 %; Platelet Count 290 10^3/cmm (157-399); Red Blood Count 4.95 10^6/uL (3.85-5.65); Red Cell Distribution Width 14.6 % (12.1-15.1)
--- NOTE | 2024-04-13 14:11 | PC.PHAR ---
PT STATES HE HAS BEEN TAKEN OFF OF THE FLOMAX 0.4MG. NO LONGER ON MED LIST.
--- NOTE | 2024-04-13 14:12 | ED_ITS ---
HPI - SOB/Dyspnea 2 General: Chief Complaint: Shortness of Breath/Dyspnea Stated Complaint: sob pt is on o2 Time Seen by Provider: 04/13/24 13:48 Source: patient and family Mode of arrival: ambulatory Limitations: no limitations History of Present Illness: HPI Narrative: This patient is in the emergency department because of intermittent symptoms of subjective shortness of breath. He states he was seen in urgent care some months or weeks ago for similar symptoms and was told the next time this occurred to come to the emergency department. Actually this is not an acute episode he states he has been waxing and waning and progressing over the last 6 months. States he has noted decreased exercise tolerance over the past 6 months as well. He denies any fevers or chills. He denies any chest pain. He states he wears oxygen at 2 L and is turned up to 3 L at home. He states he has COPD and emphysema. He is an ex-smoker but he quit 30 or more years ago. He denies any weight loss. He states that he usually sleeps through the night but some nights he has rested restless sleep and does not sleep well but is not because of shortness of breath or chest pain. He states he has no history of cardiovascular disease that he is aware. He denies any history of cardiac arrhythmias. Pertinent past history: COPD Timing: intermittent Relieving factors: oxygen Known history of: COPD Associated symptoms: Reports no associated symptoms; Deny abdominal pain, chest pain, extremity pain, fever(s), lightheadedness, nausea, palpitations, syncope or vomiting Review of Systems 2 Const: Denies: fever(s) or chills ENMT: Denies: throat pain, odynophagia, nasal discharge or nasal congestion Card: Denies: chest pain, palpitations, irregular heart rhythm, lightheadedness, syncope or pre-syncope Resp: Reports: dyspnea and non-productive cough; Denies: productive cough, wheezing or stridor GI: Denies: abdominal pain, nausea or vomiting : Denies: flank pain, difficulty urinating or dysuria Musc: Denies: neck pain, back pain, extremity pain or extremity swelling Skin/Breast: Denies: rash Neuro: Denies: headache(s), numbness in extremities or weakness in extremities Psych: Denies: anxiety PFSH ED 2 PFSH: Medical History Hyperlipidemia Hypothyroidism No pertinent family history Hydroureteronephrosis Pancreatic mass COPD exacerbation Social History Smoking and tobacco/nicotine status: former use of tobacco/nicotine Quit status (tobacco/nicotine): has quit using Year quit tobacco: 1988 Former quit date comment: 1.5 ppd X 30 years Alcohol intake: former Substance/Drug Use: never Lives independently: Yes Household members: spouse Marital status: Physical Exam 2 Narrative: EXAM NARRATIVE: He appears comfortable in no acute distress answers questions in a goal-directed fashion without dyspnea talks in complete sentences. Const: COMMON NORMALS: no acute distress, average body habitus, patient oriented x3 and alert GENERAL APPEARANCE: cooperative and comfortable HENMT: COMMON NORMALS: normocephalic, Normal nasal mucous membranes and turbinates present, moist oral mucous membranes and oropharynx normal HEAD & SCALP: normocephalic NOSE: Normal nasal mucous membranes and turbinates present Eye: COMMON NORMALS: Equal, round and reactive pupils present, EOMs intact bilaterally and conjunctivae normal CONJUNCTIVA: Yes conjunctivae normal P UPIL: Yes Equal, round and reactive pupils present Neck/C-Spine: COMMON NORMALS: full ROM and no lymphadenopathy Chest: COMMONS NORMALS: normal inspection of the chest and normal palpation of entire chest wall Resp: COMMON NORMALS: normal respiratory effort, No retractions, No use of accessory muscles and clear to auscultation bilaterally AUSCULTATION: clear to auscultation bilaterally Cardio: COMMON NORMALS: regular rate, regular rhythm, No murmurs present (Cardio) and Peripheral pulses 2+ throughout RATE: regular rate RHYTHM: r egular rhythm PERIPHERAL PULSES: Peripheral pulses 2+ throughout GI: COMMON NORMALS: Normal to inspection, nondistended, normoactive bowel sounds present, Soft to palpation and non-tender PALPATION: Yes Soft to palpation : COMMON NORMALS: Yes no CVA tenderness BLADDER/KIDNEY EXAM: Yes no CVA tenderness Back/Pelvis: COMMON NORMALS: no CVA tenderness, thoracic and lumbar spine normal to inspection, no thoracic nor lumbar tenderness, thoraco-lumbar ROM normal and straight leg raise negative bilaterally Extremity: COMMON NORMALS: normal to inspection, full ROM, capillary refill normal, no calf tenderness and no pedal edema Neuro: COMMON NORMALS: patient oriented x3, moves all extremities, no focal motor deficits and no sensory deficits noted SENSORIUM/ORIENTATION: Yes alert Psych: COMMON NORMALS: mental status grossly normal Skin: COMMON NORMALS: no rashes or lesions noted and no wounds GENERAL SKIN EXAM: no rashes or lesions noted Course 2 Reevaluation(s): Reevaluation #1: Patient remained stable. He has no new or or worsening complaints. He is very comfortable. No change in his physical examination or vital signs. I reviewed current findings and their reassuring nature with both he and his spouse. Currently taking long-acting steroid as well as a long-acting beta agonist. No evidence of any acute cardiopulmonary condition at this time. I discussed findings or lack of worrisome nature and he is suitable to be discharged with outpatient follow-up. He is scheduled to see a new etcher photoengraving. I do not feel that this is an ongoing emergency medical condition at this time. He was comfortable being discharged and his was in agreement as well. Time: 15:47 Vital Signs: Vital signs: Vital Signs Temperature 97.7 F 04/13/24 13:03 Pulse Rate 69 04/13/24 14:58 Respiratory Rate 20 H 04/13/24 13:03 Blood Pressure 141/78 04/13/24 13:03 Pulse Oximetry 95 04/13/24 14:58 Oxygen Delivery Me thod Nasal Cannula 04/13/24 13:03 Oxygen Flow Rate 3 04/13/24 13:03 MDM - SOB/Dyspnea Medical Decision Making This patient made his way to the emergency department today because of progressive shortness of breath over the past 6 months. He states that he was told in the past by his nurse practitioner that if he had any concerns he should come to the emergency department for evaluation. He generally had no new changes he just had progressive symptoms and therefore presents at that this time with those complaints. There is no history of recent fevers productive cough or chills or other change in his symptoms. He has no concomitant chest pain etc. His clinical examination is reassuring. He was well saturated on his usual 2 to 3 L. His chest was clear and quiet without any evidence of worrisome findings and his heart was regular without any murmur JVD etc. No peripheral edema or calf tenderness etc. Workup was initiated to ensure no evidence of ongoing CHF pneumonia ACS etc. that might have caused any progression. His workup was pretty unremarkable here his chest x-ray is unchanged he had no troponin elevation. His BNP was very reassuring. We had a discussion and reviewed all his results. No evidence at this time to suggest an ongoing emergency medical condition that required further emergency department evaluation or treatment and/or admission etc. He is in the process of seeing a new etcher photoengraving and has all the necessary medications to take care of himself at home. We discussed return precautions. Lab Data I reviewed the patient's lab results. 04/13/24 13:30 04/13/24 13:30 Labs/Radiology: Radiology Impressions Chest X-Ray 04/13/24 13:16 Impression: 1. Hyperinflation. 2. Poorly outlined right upper lobe nodule adjacent to the lateral aspect of the right fourth rib unchanged Laboratory Results WBC 9.90 10^3/uL (3.29-11.43) 04/13/24 13:30 RBC 4.95 10^6/uL (3.85-5.65) 04/13/24 13:30 Hgb 14.70 g/dL (11.27-16.99) 04/13/24 13:30 Hct 46.3 % (37-53) 04/13/24 13:30 MCV 93.5 fl (82-101) 04/13/24 13:30 MCH 29.7 pg (27-33) 04/13/24 13:30 MCHC 31.7 g/dL (30-55) 04/13/24 13:30 RDW 14.6 % (12.1-15.1) 04/13/24 13:30 Plt Count 290 10^3/cmm (157-399) 04/13/24 13:30 MPV 9.8 fL (7.4-10.4) 04/13/24 13:30 Neut % (Auto) 62.2 % 04/13/24 13:30 Lymph % (Auto) 19.1 % 04/13/24 13:30 Monona % (Auto) 10.4 % 04/13/24 13:30 Eos % (Auto) 6.6 % 04/13/24 13:30 Baso % (Auto) 1.2 % 04/13/24 13:30 Neut # (Auto) 6.16 10^3/uL (1.8-7.7) 04/13/24 13:30 Lymph # (Auto) 1.9 10^3/uL (0.8-4.8) 04/13/24 13:30 Monona # (Auto) 1.0 10^3/uL (0.2-0.9) H 04/13/24 13:30 Eos # (Auto) 0.7 10^3/uL (0.0-0.8) 04/13/24 13:30 Baso # (Auto) 0.1 10^3/uL (0.0-0.1) 04/13/24 13:30 Nucleated RBC % (auto) 0 % 04/13/24 13:30 Nucleated RBCs # 0.0 /100WBC 04/13/24 13:30 Sodium 139 mmol/L (136-145) 04/13/24 13:30 Potassium 4.6 mmol/L (3.5-5.1) 04/13/24 13:30 Chloride 103 mmol/L (98-107) 04/13/24 13:30 Carbon Dioxide 28 mmol/L (22-29) 04/13/24 13:30 Anion Gap 12.6 (5-19) 04/13/24 13:30 BUN 18 mg/dL (8-23) 04/13/24 13:30 Creatinine 1.3 mg/dL (0.7-1.2) H 04/13/24 13:30 GFR Calculation Not Reportable 04/13/24 13:30 Glucose 89 mg/dL (65-115) 04/13/24 13:30 Calculated Osmolality 289 mOsm/kg (285-295) 04/13/24 13:30 Calcium 9.1 mg/dL (8.5-10.5) 04/13/24 13:30 Total Bilirubin 0.3 mg/dL (0.15-1.2) 04/13/24 13:30 AST 13 U/L (0-40) 04/13/24 13:30 ALT 17 U/L (0-41) 04/13/24 13:30 Alkaline Phosphatase 81 U/L (40-130) 04/13/24 13:30 Troponin T Baseline 9 ng/L (0-15) 04/13/24 13:30 NT-Pro-B Natriuret Pep 50 pg/mL (0-450) 04/13/24 13:30 Total Protein 6.1 g/dL (6.6-8.7) L 04/13/24 13:30 Albumin 3.9 g/dL (3.5-5.2) 04/13/24 13:30 Globulin 2.2 g/dL (1.3-4.6) 04/13/24 13:30 All radiology interpretation(s) finalized by discharge EKG Data EKG 1: I personally reviewed and interpreted this EKG as follows: Interpretation: Contemporaneous review of EKG reveals a ventricular rate of 80 bpm. Prolonged ID interval consistent with a first-degree AV block. QRS duration is normal. Corrected QT interval is normal. Leftward axis considered with left anterior Heema block. No acute ST-T wave changes noted. Discharge Plan Discharge Patient Disposition: Home Clinical Impression: COPD (chronic obstructive pulmonary disease) Qualifiers: COPD type: emphysema Emphysema type: centrilobular Qualified Code(s): J43.2 - Centrilobular emphysema Condition: Stable Prescriptions: No Action finasteride 5 mg tablet 5 mg PO QAM albuterol sulfate [Ventolin HFA] 90 mcg/actuation HFA aerosol inhaler 2 puff INHALATION Q6H PRN (Reason: Shortness Of Breath) sertraline 50 mg tablet 50 mg PO QAM montelukast 10 mg tablet 10 mg PO BEDTIME atorvastatin 40 mg tablet 40 mg PO BEDTIME fluticasone propionate [Flonase Allergy Relief] 50 mcg/actuation spray,suspension 1 spray intranasal BID Qty: 16 0RF Rx Instructions: administer into each nostril (DME) Nebulizer with Supplies See Rx Instructions .Route .MEDSUPPLY Qty: 1 0RF Rx Instructions: DX:COPD J44.9 Anoro Ellipta 62.5-25 mcg/actuation blister with device 1 inh inhalation Q24H Qty: 60 3RF hydroxyzine HCl 50 mg tablet 50 mg PO BEDTIME levothyroxine 125 mcg tablet 125 mcg PO QAM Excedrin Migraine 250-250-65 mg Tablet 2 tab PO Q6H PRN (Reason: Migraine Headache) fluticasone propionate 110 mcg/actuation HFA aerosol inhaler 1 puff INHALATION BID PRN (Reason: Shortness Of Breath) pantoprazole 40 mg tablet,delayed release (DR/EC) 40 mg PO QAM Discharge Orders: Discharge ED (Routine); Ordered 04/13/24 Ordered By: Elio De La Garza Referrals: Angela Meléndez FNP [Primary Care Provider] - Discharge Diet: Usual diet Discharge Activity: Increase activity as tolerated and Oxygen as instructed Patient Instructions: Opioid Safety, Pain Management Activity Restrictions/Additional Instructions: As we discussed while you are in the emergency department there was no evidence of a serious condition at this time. We recommend continue your usual medications. If you develop increasing shortness of breath chest pain fevers cough chills or other concerning symptoms you are welcome to return to the emergency department otherwise follow-up with your regular doctor as scheduled. Coding Level of Care Code ED Director Of Corporate Responsibility for Yisel Helton
[2024-04-13 14:15] LABS: Troponin(5th) Baseline 9 ng/L (0-15)
[2024-04-13 14:22] LABS: Alanine Aminotransferase 17 U/L (0-41); Albumin Level 3.9 g/dL (3.5-5.2); Alkaline Phosphatase 81 U/L (40-130); Anion Gap 12.6 (5-19); Aspartate Amino Transferase 13 U/L (0-40); Blood Urea Nitrogen 18 mg/dL (8-23); Calcium 9.1 mg/dL (8.5-10.5); Carbon Dioxide 28 mmol/L (22-29); Chloride 103 mmol/L (98-107); Creatinine Clr Calc Pharmacy 42.0022; Globulin 2.2 g/dL (1.3-4.6); Glucose 89 mg/dL (65-115); NT Pro B Type Natriuretic Pept 50 pg/mL (0-450); Osmolality Calculated 289 mOsm/kg (285-295); Potassium 4.6 mmol/L (3.5-5.1); Sodium 139 mmol/L (136-145); Total Bilirubin 0.3 mg/dL (0.15-1.2); Total Protein 6.1 g/dL (6.6-8.7)
[2024-04-13 14:58] VITALS: PULSE 69; O2SAT 95
== END 2024-04-13 16:07 | disposition home or self-care (01) ==
PROVIDERS: Emergency Provider Emergency Medicine; PCP Nurse Practitioner Family
DX: J43.2 Centrilobular emphysema (principal); E78.5 Hyperlipidemia, unspecified; Z87.891 Personal history of nicotine dependence
CPT/HCPCS: 36415; 71045; 80053; 83880; 84484; 85025; 93005; 99285